=== PATIENT | male | born 1945 | race Hispanic/Latino ===

== ENCOUNTER 2024-07-10 03:25 | Emergency (ER) | payer OTHER, SELFPAY ==
[2024-07-10] VITALS (16 sets, daily range): BP systolic 111–136; BP diastolic 65–86; PULSE 113; O2SAT 98; BMI 28.8
--- NOTE | 2024-07-10 05:14 | ED.GENMED ---
History of Present Illness
<Kj Vargas, DO - Last Filed: 07/10/24 06:45>
General
Chief Complaint: Fall
Source: patient and ambulance crew
Time Seen by Provider: 07/10/24 03:59
Nursing documentation reviewed up to this point in time: agreed with
History of Present Illness
History of Present Illness:
Pleasant 78-year-old male presents to the emergency department from [facility]. Tonight patient lost his balance and fell hit the front of his head. Patient is on heparin. Patient denies loss of consciousness. Patient does have a history of a
subdural hematoma with bur hole.
Course
<Kj Vargas, DO - Last Filed: 07/10/24 06:45>
Orders/Labs/Results
Orders:
Orders
07/10/24 04:[address] [CT Head W/o Iv Contrast] Urgent
Comment:
Reason For Exam: Fall
07/10/24 05:48
Ambulate Patient-Treatment ONCE
07/10/24 06:38
PT Consult [Pt Eval And Treat] Urgent
Activity Level: Out of Bed-Early Mobility
07/10/24 06:59
Complete Blood Count/With Diff Urgent
07/10/24 07:27
Levetiracetam [Keppra] 750 mg PO NOW STA
07/10/24 09:11
Levetiracetam [Keppra] 750 mg PO NOW STA
07/10/24 09:12
Lisinopril [Zestril] 5 mg PO NOW STA
07/10/24 09:32
Basic Metabolic Panel Urgent
07/10/24 09:40
Urinalysis Reflex To Culture Urgent
Date Specimen was Collected: 07/10/24
Time Specimen was Collected: 09:39
Urine Microscopic Reflex Cult Urgent
Urine Culture Urgent
GHAZAL Source: U
Specimen Description:
Date Specimen was Collected: 07/10/24
Time Specimen was Collected: 09:39
07/10/24 09:58
0.9% Sodium Chloride 500 ml [Nss] 500 ml IV BOLUS
07/10/24 10:18
CT Head W/o Iv Contrast Urgent
Comment:
Reason For Exam: f/u SDH, recent jennifer hole
Abnormal Lab Results
07/10/24 07/10/24 07/10/24
06:59 09:32 09:40
RBC 3.39 L 10^6/uL
(4.70-6.10)
Hgb 11.2 L g/dL
(13.0-18.0)
Hct 33.8 L %
(39.0-52.0)
MCV 99.7 H fL
(80.0-94.0)
MCH 33.0 H pg
(27.0-31.0)
Abs Immat Gran (auto) 0.3 H 10^3/uL
(0-0.05)
Absolute Neuts (auto) 8.0 H 10^3/uL
(1.4-6.5)
Absolute Monos (auto) 0.8 H 10^3/uL
(0.1-0.6)
Immature Gran % 2.7 H %
(0-0.5)
Lymphocytes % 11.5 L %
(20.5-51.1)
Potassium 5.2 H mmol/L
(3.5-5.1)
BUN 28 H mg/dl
(9-20)
Creatinine 1.5 H mg/dL
(0.7-1.3)
Glucose 162 H mg/dl
(70-99)
Urine Ketones 2+ A
(Negative)
Ur Occult Blood Reflex 4+ A
(Negative)
Urine RBC 3-6 A /HPF
(0-2)
Urine Bacteria (Reflex) Many A
(Negative)
Urine Albumin (Reflex) 3+ A
(Neg - Trace)
07/10/24 06:59
07/10/24 09:32
Vital Signs
Initial and Last Documented VS:
Initial Vital Signs
BP
124/78
07/10/24 03:27
Last Documented Vital Signs
Temp Pulse Resp BP Pulse Ox
36.7 C 99 23 114/75 95
07/10/24 11:34 07/10/24 12:45 07/10/24 12:45 07/10/24 12:00 07/10/24 12:45
<Robert Kennedy, DO - Last Filed: 07/10/24 12:45>
Orders/Labs/Results
Orders:
Orders
07/10/24 04:[address] [CT Head W/o Iv Contrast] Urgent
Comment:
Reason For Exam: Fall
07/10/24 05:48
Ambulate Patient-Treatment ONCE
07/10/24 06:38
PT Consult [Pt Eval And Treat] Urgent
Activity Level: Out of Bed-Early Mobility
07/10/24 06:59
Complete Blood Count/With Diff Urgent
07/10/24 07:27
Levetiracetam [Keppra] 750 mg PO NOW STA
07/10/24 09:11
Levetiracetam [Keppra] 750 mg PO NOW STA
07/10/24 09:12
Lisinopril [Zestril] 5 mg PO NOW STA
07/10/24 09:32
Basic Metabolic Panel Urgent
07/10/24 09:40
Urinalysis Reflex To Culture Urgent
Date Specimen was Collected: 07/10/24
Time Specimen was Collected: 09:39
Urine Microscopic Reflex Cult Urgent
Urine Culture Urgent
GHAZAL Source: U
Specimen Description:
Date Specimen was Collected: 07/10/24
Time Specimen was Collected: 09:39
07/10/24 09:58
0.9% Sodium Chloride 500 ml [Nss] 500 ml IV BOLUS
07/10/24 10:18
CT Head W/o Iv Contrast Urgent
Comment:
Reason For Exam: f/u SDH, recent jennifer hole
Abnormal Lab Results
07/10/24 07/10/24 07/10/24
06:59 09:32 09:40
RBC 3.39 L 10^6/uL
(4.70-6.10)
Hgb 11.2 L g/dL
(13.0-18.0)
Hct 33.8 L %
(39.0-52.0)
MCV 99.7 H fL
(80.0-94.0)
MCH 33.0 H pg
(27.0-31.0)
Abs Immat Gran (auto) 0.3 H 10^3/uL
(0-0.05)
Absolute Neuts (auto) 8.0 H 10^3/uL
(1.4-6.5)
Absolute Monos (auto) 0.8 H 10^3/uL
(0.1-0.6)
Immature Gran % 2.7 H %
(0-0.5)
Lymphocytes % 11.5 L %
(20.5-51.1)
Potassium 5.2 H mmol/L
(3.5-5.1)
BUN 28 H mg/dl
(9-20)
Creatinine 1.5 H mg/dL
(0.7-1.3)
Glucose 162 H mg/dl
(70-99)
Urine Ketones 2+ A
(Negative)
Ur Occult Blood Reflex 4+ A
(Negative)
Urine RBC 3-6 A /HPF
(0-2)
Urine Bacteria (Reflex) Many A
(Negative)
Urine Albumin (Reflex) 3+ A
(Neg - Trace)
07/10/24 06:59
07/10/24 09:32
Vital Signs
Initial and Last Documented VS:
Initial Vital Signs
BP
124/78
07/10/24 03:27
Last Documented Vital Signs
Temp Pulse Resp BP Pulse Ox
36.7 C 99 23 114/75 95
07/10/24 11:34 07/10/24 12:45 07/10/24 12:45 07/10/24 12:00 07/10/24 12:45
<Jessica Pires PA-C - Last Filed: 07/13/24 09:17>
Orders/Labs/Results
Orders:
Orders
07/10/24 04:[address] [CT Head W/o Iv Contrast] Urgent
Comment:
Reason For Exam: Fall
07/10/24 05:48
Ambulate Patient-Treatment ONCE
07/10/24 06:38
PT Consult [Pt Eval And Treat] Urgent
Activity Level: Out of Bed-Early Mobility
07/10/24 06:59
Complete Blood Count/With Diff Urgent
07/10/24 07:27
Levetiracetam [Keppra] 750 mg PO NOW STA
07/10/24 09:11
Levetiracetam [Keppra] 750 mg PO NOW STA
07/10/24 09:12
Lisinopril [Zestril] 5 mg PO NOW STA
07/10/24 09:32
Basic Metabolic Panel Urgent
07/10/24 09:40
Urinalysis Reflex To Culture Urgent
Date Specimen was Collected: 07/10/24
Time Specimen was Collected: 09:39
Urine Microscopic Reflex Cult Urgent
Urine Culture Urgent
GHAZAL Source: U
Specimen Description:
Date Specimen was Collected: 07/10/24
Time Specimen was Collected: 09:39
07/10/24 09:58
0.9% Sodium Chloride 500 ml [Nss] 500 ml IV BOLUS
07/10/24 10:18
CT Head W/o Iv Contrast Urgent
Comment:
Reason For Exam: f/u SDH, recent jennifer hole
Abnormal Lab Results
07/10/24 07/10/24 07/10/24
06:59 09:32 09:40
RBC 3.39 L 10^6/uL
(4.70-6.10)
Hgb 11.2 L g/dL
(13.0-18.0)
Hct 33.8 L %
(39.0-52.0)
MCV 99.7 H fL
(80.0-94.0)
MCH 33.0 H pg
(27.0-31.0)
Abs Immat Gran (auto) 0.3 H 10^3/uL
(0-0.05)
Absolute Neuts (auto) 8.0 H 10^3/uL
(1.4-6.5)
Absolute Monos (auto) 0.8 H 10^3/uL
(0.1-0.6)
Immature Gran % 2.7 H %
(0-0.5)
Lymphocytes % 11.5 L %
(20.5-51.1)
Potassium 5.2 H mmol/L
(3.5-5.1)
BUN 28 H mg/dl
(9-20)
Creatinine 1.5 H mg/dL
(0.7-1.3)
Glucose 162 H mg/dl
(70-99)
Urine Ketones 2+ A
(Negative)
Ur Occult Blood Reflex 4+ A
(Negative)
Urine RBC 3-6 A /HPF
(0-2)
Urine Bacteria (Reflex) Many A
(Negative)
Urine Albumin (Reflex) 3+ A
(Neg - Trace)
07/10/24 06:59
07/10/24 09:32
Vital Signs
Initial and Last Documented VS:
Initial Vital Signs
BP
124/78
07/10/24 03:27
Last Documented Vital Signs
Temp Pulse Resp BP Pulse Ox
36.7 C 99 23 114/75 95
07/10/24 11:34 07/10/24 12:45 07/10/24 12:45 07/10/24 12:00 07/10/24 12:45
<Robert Kennedy DO - Last Filed: 07/10/24 12:45>
Update Note
Update Note:
The [facility] radiology report noted the subdural however the report today from the [place] radiologist's indicates that this is an acute subdural. Records indicate that he did have a subdural which was nontraumatic but no old prior CT imaging
available. Will repeat CT now ([address] He did poorly with PT but is already placed at [facility]. Repeat CT imaging shows no worsening and may be related to prior injury. No clear indication to keep in the hospital. Blood
work was obtained�white count normal, hemoglobin slightly low at 11.2, creatinine 1.5 (no old to compare) and we did give IV fluids. No clear sign of infection based on urinalysis.
<Jessica Pires PA-C - Last Filed: 07/13/24 09:17>
Update Note
Update Note:
The [facility] radiology report noted the subdural however the report today from the [place] radiologist's indicates that this is an acute subdural. Records indicate that he did have a subdural which was nontraumatic but no old prior CT imaging
available. Will repeat CT now ([address] He did poorly with PT but is already placed at [facility]. Repeat CT imaging shows no worsening and may be related to prior injury. No clear indication to keep in the hospital. Blood
work was obtained�white count normal, hemoglobin slightly low at 11.2, creatinine 1.5 (no old to compare) and we did give IV fluids. No clear sign of infection based on urinalysis.
07/13/2024 0915 AM
[facility] was faxed this urine culture showing 30,000 colonies of E. coli which is pansensitive. Patient was here for a fall and had a subdural
Fax number was [phone]
ED Attending Note
<Kj Vargas, DO - Last Filed: 07/10/24 06:45>
-
Portions of this chart may have been created with voice recognition software.� Occasional wrong word or��sound alike� substitutions may have occurred due to the inherent limitations of voice recognition software.
Discharge Plan
Departure
Patient Disposition: Home (Routine Discharge)
Date of Disposition: 07/10/24
Time of Disposition: 10:16
Patient with high blood pressure during this ER visit?: Yes
Condition: Good
Discharge Problem:
Fall, Subacute subdural hematoma
Instructions: Head Injury in Adults (DC)
Prescriptions:
No Action
Glucagon Emergency Kit 1 mg Kit
1 mg IM [id number] PRN (Reason: symptomatic hypoglycemia that does not respond PO)
insulin glargine 100 unit/mL Solution
30 unit SC HS
acetaminophen 650 mg Tablet
650 mg PO Q6H PRN (Reason: mild pain/fever)
magnesium hydroxide [Milk of Magnesia] 400 mg/5 mL Suspension
30 ml PO DAILY PRN (Reason: if no BM in 3 days)
bisacodyl 10 mg Suppository
10 mg NV DAILY PRN (Reason: constipation)
levetiracetam [Keppra] 750 mg Tablet
750 mg PO Q12H
lisinopril 5 mg Tablet
5 mg PO DAILY
insulin lispro 100 unit/mL Cartridge
1 sliding scale dose SC ACHS
Rx Instructions:
150-200=2 units
201-250=4 units
251-300=6 units
301-350=8 units
351-400=10 units
Incruse Ellipta 62.5 mcg/actuation Blister With Device
1 inh INHALATION DAILY
daptomycin in 0.9 % sod chlor 700 mg/100 mL Piggyback
750 mg IV HS
Referrals:
UNKNOWN - PT DOES,NOT KNOW [Family Provider] -
Activity Restrictions/Additional Instructions:
It was a pleasure meeting you and taking part in your care. We hope for your continued healing and wellness.
Please read discharge instructions in their entirety. However, they are for general education and may not describe your exact diagnosis at discharge. Information on your ER visit and medical conditions were discussed with you along with appropriate
follow up information...
If indicated, please take your medications as instructed and indicated on discharge paperwork.
Please schedule a follow up appointment as directed. Call to schedule an appointment
Please return to the emergency department with ANY change in, persisting, or worsening of symptoms. If any of your symptoms do not improve, or persist, or become more severe within 6-12 hours, please return to the emergency department for further
care.
Please return to the emergency department if you develop a headache, neck pain/stiffness, fever greater than 100.4F, chest pain, shortness of breath, persistent nausea, vomiting, slurred speech, difficulty walking, numbness/tingling, weakness, signs
of infection or any other symptoms that are worrisome to you.
If you have any questions or concerns please do not hesitate to call the Hospital at or E-mail me directly at [email or web address]
We did 2 CAT scans as the initial 1 showed questionable subdural hematoma. The repeat CAT scan is stable. Basic blood work was also obtained. We did give some IV fluids for some mild renal insufficiency. Return here if worse or other concerns.
Interventions
Interventions:
*Risk Screen - Suicide Last Done: 07/10/24 03:28
*General Assessment Last Done: 07/10/24 03:28
*Neglect/Abuse Screening Last Done: 07/10/24 03:28
ED- Fall Risk Assessment Last Done: 07/10/24 03:59
*ED COVID-19 Vaccine History Last Done: 07/10/24 03:58
*Nursing Disposition Last Done: 07/10/24 13:07
ED-Musculoskeletal Assessment Last Done: 07/10/24 03:59
ED- Neurological Assessment Last Done: 07/10/24 03:59
ED-Skin Assessment Last Done: 07/10/24 03:59
Discharge Date and Time
Discharge Date/Time: 07/10/24 13:09
Print Language: GUATEMALAN
--- NOTE | 2024-07-10 07:37 | EDRN ---
this RN received the pt from previous gaming host nurse Eliecer KELLEY, the pt is resting in stretcher in the lowest position, side rails up x2, call warren within reach, HOB elevated, no s/s of distress, the pt is chadian speaking, bus and sys integration senior manager used to
communicate with the pt, the pt is tachycardic, afebrile, the pt has a RUE Midline, per med list the pt is on Daptomycin for 'Sepsis/MRSA', it is unknown where the location of MRSA is, medication reconciliation performed and completed by this RN,
this RN notified Dr. Kennedy of daily medications that the pt takes, awaiting for physical therapy to see the pt, will continue to monitor the pt closely
[2024-07-10 07:39] LABS: % Basophils 0.6 % (0-2); % Eosinophils 3.2 % (0-6); % Immature Granulocytes 2.7 % (0-0.5); % Lymphocytes 11.5 % (20.5-51.1); % Monocytes 7.4 % (1.7-9.3); % Neutrophils 74.6 % (42.2-75.2); Absolute Basophils 0.1 10^3/uL (0-0.2); Absolute Eosinophils 0.3 10^3/uL (0-0.7); Absolute Immature Granulocytes 0.3 10^3/uL (0-0.05); Absolute Lymphocytes 1.2 10^3/uL (1.2-3.4); Absolute Monocytes 0.8 10^3/uL (0.1-0.6); Hematocrit 33.8 % (39.0-52.0); Hemoglobin 11.2 g/dL (13.0-18.0); Mean Corp Hgb Conc. 33.1 g/dL (33.0-37.0); Mean Corpuscular Volume 99.7 fL (80.0-94.0); Mean Platelet Volume 10.3 fL (7.4-10.4); Nucleated Red Blood Cells % 0 % (-); Platelet Count 243 10^3/uL (130-400); Red Blood Cell Count 3.39 10^6/uL (4.70-6.10); Red Cell Dist. Width 12.2 % (11.5-14.5); White Blood Cell Count 10.7 10^3/uL (4.8-10.8)
--- NOTE | 2024-07-10 08:46 | EDRN ---
physical therapy currently at the pts bedside
[2024-07-10] MEDS: ZESTRIL 5 MG PO (09:28)
[2024-07-10] MEDS: KEPPRA 750 MG PO (09:28)
[2024-07-10 09:56] LABS: Blood Urea Nitrogen 28 mg/dl (9-20); Calcium 8.9 mg/dl (8.4-10.2); Carbon Dioxide 25 mmol/L (22-30); Chloride 103 mmol/L (98-107); Estimated Creatinine Clearance 38 ml/min; Glucose 162 mg/dl (70-99); Potassium 5.2 mmol/L (3.5-5.1); Sodium 135 mmol/L (135-145); eGFR 47.95
[2024-07-10] MEDS: NSS 500 IV (10:04)
[2024-07-10 10:05] LABS: Urine Albumin 3+ (Neg - Trace); Urine Bilirubin Negative (Negative); Urine Character Clear (Clear); Urine Color Yellow; Urine Glucose Negative (Negative); Urine Ketone 2+ (Negative); Urine Leukocyte Negative (Negative); Urine Nitrite Negative (Negative); Urine Occult Blood 4+ (Negative); Urine Urobilinogen Negative (Neg - 1+)
[2024-07-10 10:23] LABS: Urine Granular Cast >15 /LPF (0); Urine Hyaline Cast 0-2 /LPF (0-2)
[2024-07-10 10:25] LABS: Urine Amorphous Seen
[2024-07-10 10:26] LABS: Urine Bacteria Many (Negative); Urine White Cell 0-2 /HPF (0-5)
--- NOTE | 2024-07-10 13:04 | EDRN ---
this RN called [facility] to give verbal report at [phone] and spoke to the receiving nurse Marianela and gave report and also notified them that morning meds Keppra and Lisinopril were administered
== END 2024-07-10 13:09 | disposition home or self-care (01) ==
LOC: EMR 03:25
PROVIDERS: Emergency Medicine; EMERGENCY PHYSICIAN Student in an Organized Health Care Education/Training Program
DX: S06.5XAA Traumatic subdural hemorrhage with loss of consciousness status unknown, initial encounter (principal); W01.0XXA Fall on same level from slipping, tripping and stumbling without subsequent striking against object, initial encounter
CPT/HCPCS: 99285; 96360; 70450; 80048; 81003; 81015; 85025; 87071; 87086; 87186

== ENCOUNTER 2024-07-27 19:42 | Inpatient (IN) | payer MEDICARE, OTHER, SELFPAY ==
[2024-07-27] VITALS (17 sets, daily range): BP systolic 80–133; BP diastolic 47–101
[2024-07-27 13:34] LABS: % Basophils 0.8 % (0-2); % Eosinophils 3.1 % (0-6); % Immature Granulocytes 2.4 % (0-0.5); % Lymphocytes 13.9 % (20.5-51.1); % Monocytes 6.2 % (1.7-9.3); % Neutrophils 73.6 % (42.2-75.2); Absolute Basophils 0.1 10^3/uL (0-0.2); Absolute Eosinophils 0.3 10^3/uL (0-0.7); Absolute Immature Granulocytes 0.3 10^3/uL (0-0.05); Absolute Lymphocytes 1.4 10^3/uL (1.2-3.4); Absolute Monocytes 0.6 10^3/uL (0.1-0.6); Absolute Neutrophils 7.5 10^3/uL (1.4-6.5); Hematocrit 37.8 % (39.0-52.0); Hemoglobin 12.5 g/dL (13.0-18.0); Mean Corp Hgb Conc. 33.1 g/dL (33.0-37.0); Mean Corpuscular Hgb 32.5 pg (27.0-31.0); Mean Corpuscular Volume 98.2 fL (80.0-94.0); Mean Platelet Volume 9.6 fL (7.4-10.4); Nucleated Red Blood Cells % 0 % (-); Platelet Count 379 10^3/uL (130-400); Red Blood Cell Count 3.85 10^6/uL (4.70-6.10); Red Cell Dist. Width 12.8 % (11.5-14.5); White Blood Cell Count 10.2 10^3/uL (4.8-10.8)
[2024-07-27 13:49] LABS: ALT (SGPT) 27 U/L (0-50); AST (SGOT) 39 U/L (17-59); Albumin 3.3 g/dl (3.5-5.0); Alkaline Phosphatase 146 U/L (38-126); Blood Urea Nitrogen 34 mg/dl (9-20); Calcium 9.7 mg/dl (8.4-10.2); Carbon Dioxide 26 mmol/L (22-30); Chloride 99 mmol/L (98-107); Glucose 150 mg/dl (70-99); Potassium 5.1 mmol/L (3.5-5.1); Sodium 136 mmol/L (135-145); Total Protein 7.5 g/dl (6.3-8.2); eGFR 46.19
--- NOTE | 2024-07-27 14:08 | ED.GENMED ---
History of Present Illness
General
Chief Complaint: Hallucinations
Time Seen by Provider: 07/27/24 13:36
History of Present Illness
History of Present Illness:
84-year-old male with history of COPD, diabetes, history of subdural hematoma, seizure disorder presenting to the emergency department for concern of infection. Patient arrives from [place] where he was noted to have elevated heart rate and
slightly low blood pressure. He was sent for evaluation of 'sepsis'. Patient speaks Greek. Attempted to use instructor trainer canine service, however patient does not have his teeth in place so instructor trainer canine service having difficulty understanding, tried to translators.
Patient reports that he was recently admitted to hospital in [place] for a 'infection in his heart '. Per medics, patient had allegedly been hallucinating about babies in the room. Patient himself denies any acute medical complaints. He
denies chest pain, difficulty breathing, abdominal pain. No additional history obtained at this time
Phy Exam
Physical Exam
Physical Exam:
General: Well-appearing, no clinical signs of dehydration, nontoxic and in no acute distress
HEENT: protecting airway
Neck: appears supple
CV: Tachycardic, regular rhythm, no evidence of cyanosis
Resp: No accessory muscle use, no increased work of breathing, lungs clear to auscultation bilaterally. Active dry cough
Abd: Soft and non-distended, no tenderness to palpation
Extremities: No deformities, no swelling
Neuro: alert, no focal neurologic deficit. Disoriented to place and time
: deferred
Rectal: deferred
Psych: Normal affect
Skin: Intact
Course
Orders/Labs/Results
Orders:
Orders
07/27/24 13:26
CBC/With Diff [Complete Blood Count/With Diff] Urgent
CMP [Comprehensive Metabolic Panel] Urgent
07/27/24 13:58
COVID-19 Antigen Urgent
Source: Nasal Swab
Influenza A+B Rapid Molecular Urgent
GHAZAL Source: Nasal Swab
Specimen Description:
CR Chest - 2 Views Urgent
Comment:
Reason For Exam: cough
07/27/24 13:59
CT Head W/o Iv Contrast Urgent
Comment:
Reason For Exam: ams
07/27/24 15:11
0.9% Sodium Chloride 1000 ml [Nss] 1,000 ml IV BOLUS
07/27/24 15:28
Urinalysis Reflex To Culture Urgent
Date Specimen was Collected: 07/27/24
Time Specimen was Collected: 15:24
Urine Microscopic Reflex Cult Urgent
Urine Culture Urgent
GHAZAL Source: U
Specimen Description:
Date Specimen was Collected: 07/27/24
Time Specimen was Collected: 15:24
07/27/24 16:45
Lactic Acid Q4H
Comment: CANCEL 2nd LACTIC ACID IF 1st LACTIC ACID IS LESS THAN 2
Blood Culture Q30M
GHAZAL Source: Blood/Venous
Specimen Description:
07/27/24 17:15
Blood Culture Q30M
GHAZAL Source: Blood/Venous
Specimen Description:
07/27/24 20:45
Lactic Acid Q4H
Comment: CANCEL 2nd LACTIC ACID IF 1st LACTIC ACID IS LESS THAN 2
Abnormal Lab Results
07/27/24 07/27/24
13:26 15:28
RBC 3.85 L 10^6/uL
(4.70-6.10)
Hgb 12.5 L g/dL
(13.0-18.0)
Hct 37.8 L %
(39.0-52.0)
MCV 98.2 H fL
(80.0-94.0)
MCH 32.5 H pg
(27.0-31.0)
Abs Immat Gran (auto) 0.3 H 10^3/uL
(0-0.05)
Absolute Neuts (auto) 7.5 H 10^3/uL
(1.4-6.5)
Immature Gran % 2.4 H %
(0-0.5)
Lymphocytes % 13.9 L %
(20.5-51.1)
BUN 34 H mg/dl
(9-20)
Creatinine 1.5 H mg/dL
(0.7-1.3)
Glucose 150 H mg/dl
(70-99)
Alkaline Phosphatase 146 H U/L
(38-126)
Albumin 3.3 L g/dl
(3.5-5.0)
Urine Ketones 1+ A
(Negative)
Ur Occult Blood Reflex 2+ A
(Negative)
Urine Bilirubin 1+ A
(Negative)
Leukocyte Esterase Rfl 1+ A
(Negative)
Urine Bacteria (Reflex) Moderate A
(Negative)
Urine Albumin (Reflex) 2+ A
(Neg - Trace)
07/27/24 13:26
07/27/24 13:26
Vital Signs
Initial and Last Documented VS:
Initial Vital Signs
Temp Pulse Resp BP Pulse Ox
97.7 F 106 18 103/51 100
07/27/24 13:05 07/27/24 13:05 07/27/24 13:05 07/27/24 13:05 07/27/24 13:05
Last Documented Vital Signs
Temp Pulse Resp BP Pulse Ox
97.7 F 105 20 107/57 96
07/27/24 13:05 07/27/24 15:45 07/27/24 15:00 07/27/24 15:27 07/27/24 15:45
MDM/Problems Addressed
MDM/Problems Addressed:
84-year-old male with history of COPD, history of subdural hematoma, diabetes, seizures presenting for concern of underlying infection. Vital signs on arrival are significant for tachycardia.
On exam, patient is resting comfortably, no acute distress. He does have an active dry cough, otherwise no acute medical complaints. Patient is a very limited historian, Greek-speaking, does not have his dentures, so difficulty understanding by
field crops harvest machine operator. He does not have any present acute complaints. He does present with some mild tachycardia and an active cough, however afebrile. Blood pressure stable. At this time lower suspicion for septic process. Will obtain screening
laboratory analysis, chest x-ray imaging, viral swabs. Prior history of UTIs in the past as well, will send urinalysis. Also prior history of intracranial hemorrhage. Will obtain CT brain imaging.
16:40 - Patient without leukocytosis, however blood pressure is low, starting IV fluids. Heart rate remains elevated. Patient is meeting SIRS criteria now with the low blood pressure. Chest x-ray shows concern for pneumonia, which is suspected
source of infection with patient's active cough. Will start antibiotics. Given that patient is in a [facility], will treat as a hospital-acquired. Plan for admission.
*Critical Care Note
Total Time (30-74mins, 75-104mins- exclusive of procedures): Not Applicable
ED Attending Note
-
Portions of this chart may have been created with voice recognition software.� Occasional wrong word or��sound alike� substitutions may have occurred due to the inherent limitations of voice recognition software.
Discharge Plan
Departure
Prescriptions:
No Action
Glucagon Emergency Kit 1 mg Kit
1 mg IM [id number] PRN (Reason: symptomatic hypoglycemia that does not respond PO)
insulin glargine 100 unit/mL Solution
30 unit SC HS
acetaminophen 650 mg Tablet
650 mg PO Q6H PRN (Reason: mild pain/fever)
magnesium hydroxide [Milk of Magnesia] 400 mg/5 mL Suspension
30 ml PO DAILY PRN (Reason: if no BM in 3 days)
bisacodyl 10 mg Suppository
10 mg HI DAILY PRN (Reason: constipation)
levetiracetam [Keppra] 750 mg Tablet
750 mg PO Q12H
lisinopril 5 mg Tablet
5 mg PO DAILY
insulin lispro 100 unit/mL Cartridge
1 sliding scale dose SC ACHS
Rx Instructions:
150-200=2 units
201-250=4 units
251-300=6 units
301-350=8 units
351-400=10 units
Incruse Ellipta 62.5 mcg/actuation Blister With Device
1 inh INHALATION DAILY
daptomycin in 0.9 % sod chlor 700 mg/100 mL Piggyback
750 mg IV HS
Referrals:
Luis Carlos Albarran MD [Family Provider] -
Interventions
Interventions:
*Risk Screen - Suicide Last Done: 07/27/24 13:05
*General Assessment Last Done: 07/27/24 13:05
*Neglect/Abuse Screening Last Done: 07/27/24 13:05
*ED- Fall Risk Assessment Last Done: 07/27/24 13:05
*ED COVID-19 Vaccine History Last Done: 07/27/24 14:01
ED-Suicide Risk Assessment Last Done: 07/27/24 14:05
ED- Neurological Assessment Last Done: 07/27/24 14:01
ED-Psychological Assessment Last Done: 07/27/24 14:01
Discharge Date and Time
Print Language: ALGERIAN
[2024-07-27 14:25] LABS: COVID-19 Antigen Negative (Negative)
[2024-07-27] MEDS: NSS 1000 IV (15:26)
[2024-07-27 15:46] LABS: Urine Albumin 2+ (Neg - Trace); Urine Bilirubin 1+ (Negative); Urine Character Clear (Clear); Urine Color Yellow; Urine Glucose Negative (Negative); Urine Ketone 1+ (Negative); Urine Leukocyte 1+ (Negative); Urine Nitrite Negative (Negative); Urine Occult Blood 2+ (Negative); Urine Specific Gravity 1.025 (<1.030); Urine Urobilinogen 1+ (Neg - 1+)
[2024-07-27 16:14] LABS: Urine Bacteria Moderate (Negative); Urine Hyaline Cast >15 /LPF (0-2); Urine Red Blood Cell 0-2 /HPF (0-2); Urine White Cell 0-2 /HPF (0-5)
--- NOTE | 2024-07-27 17:36 | HPS.HSE ---
Family Physician
-
Family Physician: Luis Carlos Albarran
Chief Complaint
-
tachycardia and hypotension
History of Present Illness
Patient is a 84-year-old male with past medical history of COPD, DM, seizure disorder and Hx subdural hematoma who presented to [facility] ED for evaluation of tachycardia and hypotension at [facility]. Patient primarily
Mauritanian speaking, brake liner had a hard time understanding r/t patient not having his teeth in. Per ED documentation appears patient has had recent history of hallucinations seeing babies in the room. Patient denied any acute medical complaints. He
did state he was recently hospitalized in [place] for a 'infection in his heart.'
Medical History
Past Medical History
Past Medical History: Reports Other (obtained from facility documentation)
Additional Past Medical History:
COPD
DM
seizure disorder
Hx subdural hematoma
Past Surgical History: Reports Other (unable to obtain )
Social History
Unable to obtain full social history at this time due to: Language Barrier
Family History
Family History: Unable to Obtain
Allergies / Home Medications
Allergies reflects when Allergies were last updated in [facility].
Home Medications with original date entered in [facility]
Allergy/Medication List:
Allergies
Allergy/AdvReac Type Severity Reaction Status Date / Time
No Known Allergies Allergy Verified 07/27/24 13:04
Home Medications
acetaminophen 650 mg tablet 650 mg PO Q6H PRN mild pain/fever 07/10/24
bisacodyl 10 mg rectal suppository 10 mg CO DAILY PRN constipation 07/10/24
glucagon 1 mg injection kit 1 mg IM [id number] PRN symptomatic hypoglycemia that does not respond PO 07/10/24
insulin glargine 100 unit/mL subcutaneous solution 15 unit SC HS 07/10/24
insulin lispro 100 unit/mL subcutaneous cartridge 1 sliding scale dose SC ACHS 07/10/24
levetiracetam 750 mg tablet (Keppra) 750 mg PO Q12H 07/10/24
lisinopril 5 mg tablet 5 mg PO DAILY 07/10/24
magnesium hydroxide 400 mg/5 mL oral suspension (Milk of Magnesia) 30 ml PO DAILY PRN if no BM in 3 days 07/10/24
umeclidinium 62.5 mcg/actuation blister powder for inhalation (Incruse Ellipta) 1 inh inhalation DAILY 07/10/24
Review of Systems
-
Unable to obtain full review of systems at this time due to: Language Barrier
Physical Exam
Vital Signs
Vital Signs
Temp Pulse Resp BP Pulse Ox
97.7 F 104 19 88/62 96
07/27/24 13:05 07/27/24 17:15 07/27/24 17:15 07/27/24 17:00 07/27/24 16:45
Physical Exam
General: Well Developed, Well Nourished and No Apparent Distress
HEENT: NormoCephalic, Moist mucous membranes, Atraumatic, [place] Conjunctivae, Nose Appears Normal and Ears Appear Normal
Respiratory: Clear and Non Labored Respirations
Cardiac: S1/S2, Regular Rhythm and Tachycardia; No Murmur, Rub or Gallop
GI: Soft, Non Tender, Non Distended and Normal Bowel Sounds; No Organomegaly
Rectal: Deferred by Provider
Genito-urinary: Deferred by me
Musculoskeletal: No Clubbing, No Cyanosis and No Edema
Skin: IV/Catheter Site; No Rash
Neuro: Awake and Nonfocal/grossly intact
Laboratory Results
-
07/27/24 13:26
07/27/24 13:
Laboratory Results
Total Bilirubin 1.0 mg/dl (0.2-1.3) 07/27/24 13:26
AST 39 U/L (17-59) 07/27/24 13:26
ALT 27 U/L (0-50) 07/27/24 13:26
Alkaline Phosphatase 146 U/L (38-126) H 07/27/24 13:26
Data Reviewed
-
Diagnostic Radiology: Report Reviewed by me (CXR: 1. Moderate diffuse ground-glass opacity and increased interstitial markings throughout the left lung. Mild subpleural interstitial and airspace disease in the peripheral right upper lobe. The
appearance is most suggestive of an INFLAMMATORY PNEUMONITIS. Infectious pneumonia is an alternative)
CT Scan: Report Reviewed by me (Head: 1. Thin crescent of extra-axial high attenuation overlying the anterior and lateral convexities of the left frontal lobe and the lateral convexity of the left parietal lobe which is unchanged in appearance
from 07/10/2024. Diagnostic possibilities are (1) dural thickening/scarring deep to a l)
Lab Data: Labs Reviewed by me (BUN 34, Creat 1.5, Alk Phos 146)
Impression/Plan
-
IMPRESSION/PLAN:
#sepsis 06/21 suspected pneumonia
Covid: negative
Influenza: negative
Procal: pending
Lactic: pending
Blood Cx: pending
CXR: 1. Moderate diffuse ground-glass opacity and increased interstitial markings throughout the left lung. Mild subpleural interstitial and airspace disease in the peripheral right upper lobe. The appearance is most suggestive
of an INFLAMMATORY PNEUMONITIS. Infectious pneumonia is an alternative diagnostic possibility.
2. 2.7 cm peripheral airspace opacity in the right midlung. Diagnostic possibilities are (1) pneumonia, (2) inflammatory pneumonitis, or (3) lung cancer.
3. Mild to moderate cardiomegaly.
4. Mildly decreased bilateral lung volumes.
- Admit to telemetry
- IV antibiotics
#hypotension
- IVF bolus now
- LR 100cc/hr
- maintain MAP >65
- hold lisinopril
#Acute kidney injury
BUN 34, Creat 1.5
- IVF
- monitor BMP
#DM
- AccuCheck AC & HS
- SSI
- continue home insulin regiment if able to tolerate PO, if unable to tolerate PO meza to SSI with half dose Lantus
#seizure disorder
- continue Keppra
#Hx subdural hematoma
Head CT: 1. Thin crescent of extra-axial high attenuation overlying the anterior and lateral convexities of the left frontal lobe and the lateral convexity of the left parietal lobe which is unchanged in appearance from 07/10/2024.
Diagnostic possibilities are (1) dural thickening/scarring deep to a left parietal craniotomy or (2) a stable small subacute subdural hemorrhage.
2. Mild diffuse cerebral and cerebellar volume loss.
3. Moderate white matter leukoaraiosis in the frontal and parietal lobes.
4. 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
#COPD
- continue Incruse Ellipta
Code status: full code
DVT prophylaxis: heparin sq
--- NOTE | 2024-07-27 17:58 | W.PN.UPDATE ---
Update Note
Progress Note Update
I saw and examined the patient.
The DISC SANDER or PA's note was reviewed and I agree with the note.
Comment:
84-year-old with past medical history of COPD, diabetes, history of subdural hematoma, seizure disorder not presents from [facility] after noted to have elevated heart rate and slightly lower blood pressure.� Patient was alerted as 'sepsis' and
therefore prompted ED evaluation.� Advised to the hospital, patient was elucidating as per EMS.� Poor historian as patient does not have teeth in place, therefore as patient speaks Taiwanese, difficult understanding.� Of note, recent infection in
[place] and he stated as infection of his heart.� Otherwise denies fever, chills, chest pain, shortness of breath.� Noted to be tachycardic with heart rate of 104, respiratory rate 19, blood pressure 88/62.,� Saturating 96% on room air.� Labs
remarkable for creatinine of 1.5 which is approximately baseline, alk phos 146, UA equivocal.� Recent UTI with E. coli on July 10, 2024.� Flu negative.� COVID-negative.� Chest x-ray with possible groundglass opacity and increased interstitial
markings to left lung, airspace disease in the peripheral right upper lobe, possibly inflammatory pneumonitis versus bacterial pneumonia.� Also has 2.7 cm peripheral airspace opacity in the right midlung.
Plan�follow-up urine, blood cultures.� Follow-up procalcitonin.� Continue empiric antibiotics with vancomycin, Zosyn for now.� MRSA swab PCR.� Follow-up lactate.� Continue IV fluids 100 cc/h. LR bolus now. �Maintain MAP greater than 65.� Hold
antihypertensives.� Continue insulin if able to tolerate p.o., otherwise insulin sliding scale and half home dose Lantus.� Continue Keppra. �Echo as had recent heart issues. CT Chest for better eval.
[2024-07-27 18:14] LABS: Lactic Acid 1.5 mmol/L (0.7-2.0)
[2024-07-27 18:34] LABS: Procalcitonin 0.06 ng/ml (0.0-0.25)
[2024-07-27] MEDS: VANCOCIN 540 MG IV (18:35)
[2024-07-27] MEDS: MAXIPIME 2000 MG IV (18:35)
[2024-07-27] MEDS: LR 1000 IV ×2 (18:35→21:38)
[2024-07-27] MEDS: KEPPRA 750 MG PO (21:38)
--- NOTE | 2024-07-27 21:52 | PHA.VAN.IN ---
Assessment
- Assessment
Renal Function: Appears similar to baseline (07/10/24 BASELINE SCR: 1.5)
Concomitant Antimicrobials: ZOSYN
- Previous Dosing Experience
Previous Regimen: NONE
Plan
- Plan
Initial / Loading Dose: 2GM
Maintenance Regimen: DOSING BY RANDOM LEVEL
Monitoring: RANDOM VANCOMYCIN LEVEL 07/28/24 AM
Pharmacokinetics Vancomycin I
- -
Patient Age: 84
Patient Sex: Male
Vancomycin Day #: 1
Indication: Pulmonary/Respiratory (SEPSIS)
Requesting Provider: AMI
Height / Weight:
Height 5 ft 6 in
Actual Weight 72.4 kg
Pertinent Past Medical History: DM
- Vital Signs / Lab Results
Temp Pulse Resp BP Pulse Ox
97.7 F 94 23 104/47 94
07/27/24 13:05 07/27/24 21:00 07/27/24 21:00 07/27/24 21:00 07/27/24 19:30
Lab Results - Hematology
07/27/24
13:26
WBC 10.2
Lab Results - Chemistry
07/27/24
13:26
BUN 34 H
Creatinine 1.5 H
Albumin 3.3 L
07/27/24 07/27/24
17:54 20:45
Lactic Acid 1.5 Cancelled
Lab Results - Urine
07/27/24
15:28
Urine Nitrite (Reflex) Negative
Leukocyte Esterase Rfl 1+ A
Urine WBC (Reflex) 0-2
Ur Squamous Epith Cells 6-10
Urine Bacteria (Reflex) Moderate A
Microbiology Results
07/27/24 13:58 Influenza Types A & B (AIED) - Final
Nasal Swab Negative for Influenza A & B, NAAT
Negative results must be combined with clinical observations
and patient history.
Nucleic Acid Amplification test (NAAT)performed on the
[employer] platform.
[2024-07-27 22:08] LABS: Glucose - Point of Care 102 mg/dl (70-99)
[2024-07-27] MEDS: LANTUS 0.05 UNITS SC (22:58)
[2024-07-27] MEDS: LANTUS SC (22:59)
[2024-07-27] MEDS: ZOSYN 50 IV (22:59)
[2024-07-28] VITALS (8 sets, daily range): BP systolic 106–141; BP diastolic 58–76; BMI 25.8
[2024-07-28] MEDS: HEPARIN 5000 UNITS SC ×2 (00:40→07:58)
[2024-07-28] MEDS: NSS (PRESERVATIVE FREE) 0.125 ML IV (03:16)
[2024-07-28] MEDS: ATIVAN 0.25 MG IV (03:17)
[2024-07-28 03:20] LABS: Glucose - Point of Care 89 mg/dl (70-99)
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
[2024-07-28] MEDS: ZOSYN 50 IV ×4 (05:33→21:21)
[2024-07-28 06:34] LABS: Hemoglobin 11.4 g/dL (13.0-18.0); Mean Corp Hgb Conc. 32.6 g/dL (33.0-37.0); Mean Corpuscular Hgb 32.8 pg (27.0-31.0); Mean Corpuscular Volume 100.6 fL (80.0-94.0); Mean Platelet Volume 9.9 fL (7.4-10.4); Platelet Count 349 10^3/uL (130-400); Red Blood Cell Count 3.48 10^6/uL (4.70-6.10); Red Cell Dist. Width 12.9 % (11.5-14.5); White Blood Cell Count 11.4 10^3/uL (4.8-10.8)
[2024-07-28 06:53] LABS: Vancomycin Random 15.7 ug/ml
[2024-07-28 07:21] LABS: ALT (SGPT) 22 U/L (0-50); AST (SGOT) 34 U/L (17-59); Albumin 2.9 g/dl (3.5-5.0); Alkaline Phosphatase 126 U/L (38-126); Blood Urea Nitrogen 28 mg/dl (9-20); Calcium 9.1 mg/dl (8.4-10.2); Carbon Dioxide 25 mmol/L (22-30); Chloride 104 mmol/L (98-107); Estimated Creatinine Clearance 40 ml/min; Glucose 108 mg/dl (70-99); Potassium 4.9 mmol/L (3.5-5.1); Sodium 138 mmol/L (135-145); Total Bilirubin 0.9 mg/dl (0.2-1.3); Total Protein 6.7 g/dl (6.3-8.2); eGFR 54.85
[2024-07-28] MEDS: NOVOLOG FLEXPEN-LOW RESISTANCE SC ×3 (07:57→17:48)
[2024-07-28] MEDS: KEPPRA 750 MG PO (07:58)
[2024-07-28 10:51] LABS: Glycohemoglobin (HgbA1c) 7.3 % (4.0-5.6)
[2024-07-28 11:43] LABS: Glucose - Point of Care 100 mg/dl (70-99)
[2024-07-28] MEDS: SPIRIVA RESPIMAT 2.5 MCG 2 PUFF INH (11:44)
[2024-07-28] MEDS: LR 1000 IV (11:46)
--- NOTE | 2024-07-28 14:27 | W.PN.HOSP.TC ---
Today's Communication/Plan
-
abx
urine eos and IgE
f/u cultures
pulm consulted
ekg for qtc, haldol rec rather than benzos
Neuro consulted, holding hsq
Assessment / Plan
Assessment / Plan
Physical Exam
General: Well Developed, Well Nourished and No Apparent Distress; Agitated
HEENT: NormoCephalic, Moist mucous membranes, Atraumatic, [place] Conjunctivae, Nose Appears Normal and Ears Appear Normal
Respiratory: Clear and Non Labored Respirations
Cardiac: S1/S2, Regular Rhythm and Tachycardia; No Murmur, Rub or Gallop
GI: Soft, Non Tender, Non Distended and Normal Bowel Sounds; No Organomegaly
Rectal: Deferred by Provider
Genito-urinary: Deferred by me
Musculoskeletal: No Clubbing, No Cyanosis and No Edema
Skin: IV/Catheter Site; No Rash
Neuro: Awake and Nonfocal/grossly intact
#Sepsis 2/2 suspected pneumonia v pnumonitis
COVID and Flu negative
Blood Cx: pending
-MRSA negative
-Cont zosyn
-F/u IgE and urine eosinophils
-pulm consulted
�Hold antihypertensives
# #Stable small subacute subdural hemorrhage versus dural thickening
� Neurology consulted
� Hold DVT prophylaxis
#Acute metabolic encephalopathy
- Secondary to probable infection
-Monitor with resuscitation
� Avoid benzodiazepines if possible
#Acute kidney injury
� Prerenal versus septic ATN
- IVF
- monitor BMP
#DM
- AccuCheck AC & HS
- SSI
- Not able to tolerate diet,
#seizure disorder
- continue Keppra
#Hx subdural hematoma
Head CT: 1. Thin crescent of extra-axial high attenuation overlying the anterior and lateral convexities of the left frontal lobe and the lateral convexity of the left parietal lobe which is unchanged in appearance from 07/10/2024.
Diagnostic possibilities are (1) dural thickening/scarring deep to a left parietal craniotomy or (2) a stable small subacute subdural hemorrhage.
2. Mild diffuse cerebral and cerebellar volume loss.
3. Moderate white matter leukoaraiosis in the frontal and parietal lobes.
4. 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
-neuro consulted
#COPD
- continue Incruse Ellipta
Code status: full code
DVT prophylaxis: scd
Total time spent on today's encounter was 50 minutes which included time spent in counseling the patient/family regarding diagnosis and treatment plan as listed above, goals of care, and symptom management. Case was discussed with nursing staff,
specialists, and care coordinators/case management. All labs and imaging personally reviewed by me. Remainder the time spent in detailed review of previous records, lab data, imaging, and other medical provider documentation.
Anticipated Discharge: > 48 hours
Subjective/Interval History
-
Date of Service: July 28, 2024
given ativan overnight for agitation
Objective Data
-
Labs:
Laboratory Results
07/28/24 07/28/24
05:30 05:31
WBC 11.4 H
Hgb 11.4 L
Hct 35.0 L
Plt Count 349
Sodium 138
Potassium 4.9
Chloride 104
Carbon Dioxide 25
BUN 28 H
Creatinine 1.3
Glucose 108 H
Calcium 9.1
Total Bilirubin 0.9
AST 34
ALT 22
Alkaline Phosphatase 126
Vital Signs:
Vital Signs
Temp Pulse Resp BP Pulse Ox
98.0 F 81 21 141/64 95
07/28/24 07:27 07/28/24 13:30 07/28/24 13:30 07/28/24 12:00 07/28/24 07:27
I&O
07/27/24 07/28/24 07/29/24
06:59 06:59 06:59
Intake Total 850 / 850
Balance 850 / 850
Review of Systems
-
History Source: Patient
All other systems: Not reviewed unless documented
Data Reviewed
-
CT Scan: Report Reviewed by me
Labs: Labs Reviewed by me
[2024-07-28 17:46] LABS: Glucose - Point of Care 97 mg/dl (70-99)
[2024-07-28] MEDS: KEPPRA PO ×2 (19:47→19:50)
[2024-07-28] MEDS: KEPPRA 750 MG IV (20:02)
--- NOTE | 2024-07-28 20:17 | CON.NEURO ---
Neuro Assessment/Plan
Assessment
subdural hematoma
I reviewed the head CT imaging from today and 07/10/24, agree left frontal subdural, up to 3.5 mm in thickness, similar today as 07/10/24
no further imaging required, no rx
Consultation
Order
Date of Consultation: 07/28/24
Requesting Provider: Wes Mace
Reason for Consult: subdural hematoma
Subjective/Objective
Subjective Data
Date of Service: July 28, 2024
From H&P:
Patient is a 84-year-old male with past medical history of COPD, DM, seizure disorder and Hx subdural hematoma who presented to [facility] ED for evaluation of altered mental status, tachycardia and hypotension at [facility]
Home. Patient primarily Palauan speaking, personal injury attorney had a hard time understanding r/t patient not having his teeth in. Per ED documentation appears patient has had recent history of hallucinations seeing babies in the room. Patient denied any acute
medical complaints. He did state he was recently hospitalized in [place] for a 'infection in his heart.'
At times, he is confused, pulling out lines.
the patient had Head CT 'Thin crescent of extra-axial high attenuation overlying the anterior and lateral convexities of the left frontal lobe and the lateral convexity of the left parietal lobe which is unchanged in appearance from 07/10/2024.
Diagnostic possibilities are (1) dural thickening/scarring deep to a left parietal craniotomy or (2) a stable small subacute subdural hemorrhage.'
Objective Data
Vital Signs
Temp Pulse Resp BP Pulse Ox
36.4 C 92 18 122/58 94
07/28/24 17:30 07/28/24 17:30 07/28/24 17:30 07/28/24 17:30 07/28/24 17:30
Lab Results
07/28/24 05:30
07/28/24 05:31
Sodium 138 mmol/L (135-145) 07/28/24 05:31
Potassium 4.9 mmol/L (3.5-5.1) 07/28/24 05:31
BUN 28 mg/dl (9-20) H 07/28/24 05:31
Glucose 108 mg/dl (70-99) H 07/28/24 05:31
Calcium 9.1 mg/dl (8.4-10.2) 07/28/24 05:31
Patient Allergies
No Known Allergies Allergy (Verified 07/27/24 13:04)
Physical Exam
-
Awake and alert
confused
moving all extremity antigravity
Medications
-
Active Medications
Generic Name Dose Route Start Last Admin
Trade Name Freq PRN Reason Stop Dose Admin
Acetaminophen 650 mg 07/27/24 21:06
Acetaminophen 325 Mg Tablet PO 08/24/24 21:05
Q4HPRN PRN
MARIA/mild pain/temp > 100.4 F
Acetaminophen 650 mg 07/27/24 21:06
Acetaminophen 650 Mg Rectal Suppository RECTAL 08/24/24 21:05
Q4HPRN PRN
MARIA/ mild pain/ temp >/= 100.4F
Dextrose 12.5 grams 07/27/24 21:06
Dextrose 50% (0.5 Grams/Ml) 50 Ml Syringe IV 08/24/24 21:05
[id number] PRN
hypoglycemia
Protocol
Glucagon 1 mg 07/27/24 21:06
Glucagon 1 Mg Vial IM 08/24/24 21:05
PRN PRN
hypoglycemia
Protocol
Insulin Glargine 15 units/ 0.15 mls @ 0 mls/hr 07/27/24 22:00 07/27/24 22:59
Device SC 08/24/24 21:59 Not Given
HS SIDNEY
As Directed
Piperacillin Sod/Tazobactam Sod 3.375 gram in 50 mls @ 100 mls/hr 07/28/24 16:00 07/28/24 15:46
Zosyn IV 50 mls
Q6H SIDNEY Administration
Insulin Aspart 0 units 07/28/24 07:30 07/28/24 17:48
Insulin Aspart Low Resistance 300 Units/3 Ml Pen.Injctr SC 08/25/24 07:29 Not Given
AC SIDNEY
Protocol
Levetiracetam 750 mg 07/27/24 21:00 07/28/24 19:50
Levetiracetam 500 Mg Regular Release Tablet PO 08/24/24 20:59 Not Given
Q12 SIDNEY
Sodium Chloride 0 flush 07/27/24 22:00
Sodium Chloride 0.9% (Flush) Syringe IV 08/24/24 21:59
PER PROTOCOL SIDNEY
Tiotropium [place] 2 puff 07/28/24 08:00 07/28/24 11:44
Tiotropium (Spiriva Respimat) 2.5 Mcg Inhaler INH 08/25/24 07:59 2 puff
R DAILY SIDNEY Administration
Home Medications
�Medication �Instructions �Recorded
bisacodyl 10 mg rectal suppository 10 mg AR DAILYPRN PRN if no bm 07/10/24
aftr mom
insulin glargine 100 unit/mL 15 unit SC HS 07/10/24
subcutaneous solution
insulin lispro 100 unit/mL 1 sliding scale dose SC BID 07/10/24
subcutaneous cartridge
levetiracetam 750 mg tablet 750 mg PO Q12H 07/10/24
(Keppra)
lisinopril 5 mg tablet 5 mg PO DAILY 07/10/24
magnesium hydroxide 400 mg/5 mL 30 ml PO HSPRN PRN if no BM in 3 07/10/24
oral suspension (Milk of Magnesia) days
umeclidinium 62.5 mcg/actuation 1 inh inhalation R DAILY 07/10/24
blister powder for inhalation
(Incruse Ellipta)
acetaminophen 325 mg tablet 650 mg PO Q6HPRN PRN mild pain 07/28/24
(Tylenol)
mirtazapine 15 mg tablet (Remeron) 7.5 mg PO DAILY 07/28/24
[2024-07-28 22:45] LABS: Glucose - Point of Care 81 mg/dl (70-99)
[2024-07-28] MEDS: LANTUS SC (22:51)
[2024-07-29 03:55] VITALS: BP 118/63
[2024-07-29] MEDS: ZOSYN 50 IV ×4 (05:08→21:36)
[2024-07-29 07:30] VITALS: BP 118/85
--- NOTE | 2024-07-29 07:58 | CON.PUL ---
Consultation
Consultation Request
Date/Time Consultation Requested: 07/29/2024-7:30 AM
Date/Time Consultation Performed: 07/29/2024-8 AM
Requesting Provider: Hospitalist
Performing Provider: Dr. Uribe
Reason for Consultation: Shortness of breath/interstitial lung disease
Medical History
-
Chief Complaint: Shortness of breath
History of Present Illness:
84-year-old male patient with a history of COPD, diabetes, seizure disorder and history of subdural hematoma presented with tachycardia and hypotension from a [facility] found to have an abnormal x-ray and pulmonary was consulted for shortness of
breath and suspected interstitial lung disease 07/29/2024. Patient is primarily Chinese-speaking and is garbled and his speech and even using a Chinese-speaking product safety coordinator had a hard time translating and thus history was difficult to obtain from
him. He is in no respiratory distress. He was asking for 'agua'.
Past Medical History
Past Medical History: None (COPD. Diabetes. Seizure disorder. History of subdural hematoma. Recent hospitalization-[place] 'infection in his heart')
Social History
Tobacco: Other (Unknown)
Alcohol: None
Drug: None
Living: Custodial
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
Environmental Exposures: Unknown asbestos exposure
Allergies / Home Medications
Allergies
Allergy/AdvReac Type Severity Reaction Status Date / Time
No Known Allergies Allergy Verified 07/27/24 13:04
Home Medications
�Medication �Instructions �Recorded �Confirmed �Last Taken �Type
bisacodyl 10 mg rectal suppository [address] DAILYPRN PRN if no bm 07/10/24 07/28/24 Unknown History
aftr mom
insulin glargine 100 unit/mL 15 unit SC HS 07/10/24 07/28/24 Unknown History
subcutaneous solution
insulin lispro 100 unit/mL 1 sliding scale dose SC BID 07/10/24 07/28/24 Unknown History
subcutaneous cartridge
levetiracetam 750 mg tablet 750 mg PO Q12H 07/10/24 07/28/24 Unknown History
(Keppra)
lisinopril 5 mg tablet 5 mg PO DAILY 07/10/24 07/28/24 Unknown History
magnesium hydroxide 400 mg/5 mL 30 ml PO HSPRN PRN if no BM in 3 07/10/24 07/28/24 Unknown History
oral suspension (Milk of Magnesia) days
umeclidinium 62.5 mcg/actuation 1 inh inhalation R DAILY 07/10/24 07/28/24 Unknown History
blister powder for inhalation
(Incruse Ellipta)
acetaminophen 325 mg tablet 650 mg PO Q6HPRN PRN mild pain 07/28/24 07/28/24 Unknown History
(Tylenol)
mirtazapine 15 mg tablet (Remeron) 7.5 mg PO DAILY 07/28/24 07/28/24 Unknown History
Review of Systems
-
Unable to Obtain full review of systems at this time due to: Other (Per HPI)
Vitals / Labs / Diagnostic Testing
Vital Signs
Temp Pulse Resp BP Pulse Ox
97.9 F 92 18 118/63 95
07/29/24 03:55 07/29/24 03:55 07/29/24 03:55 07/29/24 03:55 07/29/24 03:55
Microbiology
07/27/24 17:53 Blood/Venous Blood Culture - Preliminary
No Growth in 24 hours- Final report to follow
07/27/24 17:54 Blood/Venous Blood Culture - Preliminary
No Growth in 24 hours- Final report to follow
07/27/24 15:28 Urine Urine Culture - Final
No Significant Growth
07/28/24 20:09 Nose Nasal Screen MRSA (PCR) - Final
MRSA not detected - performed by PCR methodology.
07/27/24 13:58 Nasal Swab Influenza Types A & B (AIDE) - Final
Negative for Influenza A & B, NAAT
Negative results must be combined with clinical observations
and patient history.
Nucleic Acid Amplification test (NAAT)performed on the
[employer] platform.
Diagnostic Testing:
Physical Exam
-
Exam:
Well-nourished and well-developed in no apparent distress
HEENT-atraumatic, normocephalic
Neck-supple, no JVD, no bruit
Heart-regular rate and rhythm-no murmurs, rubs or gallops
Chest with crackles at the bases, no wheezes
Back without tenderness
Abdomen-soft, nontender, nondistended, no hepatosplenomegaly
Extremities-no cyanosis, clubbing, edema and good peripheral pulses
Integument-intact, no rashes, lesions or ecchymosis
Neurology-alert and oriented, nonfocal motor and sensory exam
Assessment
-
84-year-old male patient with a history of COPD, diabetes, seizure disorder and history of subdural hematoma presented with tachycardia and hypotension after falling at [facility] found to have an abnormal x-ray and pulmonary was
consulted for shortness of breath and suspected interstitial lung disease 07/29/2024.
Pneumonia-procalcitonin negative
Aspiration risk
Hypotension
GABI
Hyperglycemia
Mild leukocytosis
Mild macrocytic anemia-hemoglobin 11.4
Conditions present prior to admission:
COPD.
Diabetes.
Seizure disorder.
History of subdural hematoma.
Recent hospitalization-[place] 'infection in his heart'
Plan
Chronicity of radiographic abnormalities is unclear with no older radiographs available for comparison-differential includes aspiration, atypical infectious pneumonitis, noninfectious inflammatory pneumonitis/interstitial lung disease and less
likely interstitial pulmonary edema
Supplement oxygen as needed
Aspiration precautions
Speech therapy evaluation if ongoing suspicion of aspiration
Video swallow if needed
Nebulizers if needed-currently not bronchospastic
Incruse inhaler as an outpatient
Check ESR and ERP
Low threshold for trial of steroids
Hold off bronchoscopy/lung biopsy
Echocardiogram summarized below
Check cultures
COVID testing negative
Influenza negative
Blood cultures no growth
Urine culture no growth
Procalcitonin negative
Empiric antibiotics initiated
Monitor leukocytosis
Neurology consultation pending
Keppra continues for underlying seizure disorder
CT head summarized below
Monitor renal function
Nephrology consultation if not improved
Monitor blood sugar
Insulin supplementation as needed
DVT prophylaxis-mechanical for now
Nutrition with aspiration precautions
Physical therapy evaluation
Reviewed with nursing
Diagnostic data:
Chest x-ray 07/27/2024-moderate diffuse groundglass opacifications suggestive of inflammatory pneumonitis, 2.7 cm peripheral airspace disease right midlung and moderate cardiomegaly
CT head 07/27/2024-mild cerebral and cerebellar volume loss, abnormality left unchanged from 07/10/2024 with diagnostic possibilities dural thickening
Scarring deep to left parietal craniotomy or stable small subacute subdural hemorrhage
CT chest 07/27/2024-severe interstitial and airspace disease involving right upper and right middle lobes and nearly the entire left upper and superior segment left lower lobe suggestive of severe inflammatory interstitial pneumonitis or severe
bilateral pneumonia, moderate cardiomegaly
Echocardiogram 07/28/2024-EF 45-50%, mild mitral stenosis, status post aortic valve replacement with mild aortic regurgitation, rhythm atrial fibrillation
Data Reviewed
-
EKG: Report reviewed by me
Radiology: Image personally visualized and interpreted and Report reviewed by me
CT Scan: Image personally visualized and interpreted and Report reviewed by me
Labs: Labs reviewed by me
Old Records: Reviewed
Total Time Spent with Patient (in minutes): 55
[2024-07-29 08:06] LABS: Hemoglobin 11.4 g/dL (13.0-18.0); Mean Corp Hgb Conc. 32.6 g/dL (33.0-37.0); Mean Corpuscular Hgb 32.4 pg (27.0-31.0); Mean Corpuscular Volume 99.4 fL (80.0-94.0); Mean Platelet Volume 9.6 fL (7.4-10.4); Platelet Count 315 10^3/uL (130-400); Red Blood Cell Count 3.52 10^6/uL (4.70-6.10); White Blood Cell Count 9.6 10^3/uL (4.8-10.8)
[2024-07-29] MEDS: SPIRIVA RESPIMAT 2.5 MCG 2 PUFF INH (08:20)
[2024-07-29 09:05] LABS: Glucose - Point of Care 101 mg/dl (70-99)
[2024-07-29 09:13] LABS: ALT (SGPT) 19 U/L (0-50); AST (SGOT) 30 U/L (17-59); Albumin 2.8 g/dl (3.5-5.0); Alkaline Phosphatase 114 U/L (38-126); Blood Urea Nitrogen 20 mg/dl (9-20); Carbon Dioxide 22 mmol/L (22-30); Chloride 104 mmol/L (98-107); Estimated Creatinine Clearance 40 ml/min; Glucose 100 mg/dl (70-99); Potassium 4.6 mmol/L (3.5-5.1); Sodium 138 mmol/L (135-145); Total Bilirubin 1.1 mg/dl (0.2-1.3); Total Protein 6.5 g/dl (6.3-8.2); eGFR 54.85
[2024-07-29] MEDS: KEPPRA 750 MG IV ×2 (09:15→20:20)
[2024-07-29 09:28] LABS: Glucose - Point of Care 93 mg/dl (70-99)
[2024-07-29] MEDS: NOVOLOG FLEXPEN-LOW RESISTANCE SC ×3 (09:29→17:36)
[2024-07-29] MEDS: KEPPRA PO (09:37)
[2024-07-29 11:30] VITALS: BP 99/79
--- NOTE | 2024-07-29 12:04 | CM ---
CM reviewed chart, per liaison at [facility], patient not LTC resident, was for short term rehab with plan to go home, mostly dependent, not ambulating. Phone call to patients son, Haroldo, to completed assessment. Per son, patient was living with
his other son prior to rehab stay, private home, first floor set up. Son reports patient was ambulatory at home, denies any VN services. Patient on wrist restraint. Son agreeable for patient to return to [facility] for SNF, will need PT/OT
orders. Son asking for call from Physician, TT to Hospitalist with request. CM will continue to follow for all discharge planning needs.
Plan; return to [facility] SNF likely, will need PT/OT.
[2024-07-29 12:20] LABS: Glucose - Point of Care 117 mg/dl (70-99)
--- NOTE | 2024-07-29 13:22 | W.PN.HOSP.TC ---
Today's Communication/Plan
-
abx
f/u final cultures
pulm recs- possible intervention with steroids
Assessment / Plan
Assessment / Plan
Physical Exam
General: Well Developed, Well Nourished and No Apparent Distress; Agitated
HEENT: NormoCephalic, Moist mucous membranes, Atraumatic, [place] Conjunctivae, Nose Appears Normal and Ears Appear Normal
Respiratory: Clear and Non Labored Respirations
Cardiac: S1/S2, Regular Rhythm and Tachycardia; No Murmur, Rub or Gallop
GI: Soft, Non Tender, Non Distended and Normal Bowel Sounds; No Organomegaly
Rectal: Deferred by Provider
Genito-urinary: Deferred by me
Musculoskeletal: No Clubbing, No Cyanosis and No Edema
Skin: IV/Catheter Site; No Rash
Neuro: Awake and Nonfocal/grossly intact
#Sepsis 2/2 suspected pneumonia v pneumonitis
� CT chest with severe interstitial and airspace disease throughout both lungs, preferentially involves periphery of the right upper and middle lobes and nearly entire left upper lobe and superior segment of the left lower lobe
COVID and Flu negative
Blood Cx: pending
-MRSA negative
-Cont zosyn
-F/u IgE and urine eosinophils
-pulm consulted
�Hold antihypertensives
� ESR 110
� Low threshold to initiate steroids
# #Stable small subacute subdural hemorrhage versus dural thickening
� Neurology consulted - NTD
#Acute metabolic encephalopathy
- Secondary to probable infection +/- delirium
-improved today
-cont abx
-Monitor with resuscitation
� Avoid benzodiazepines if possible
#Acute kidney injury
� Prerenal versus septic ATN
- IVF
- monitor BMP
-improving
#DM
- AccuCheck AC & HS
- SSI
- Not able to tolerate diet,
#seizure disorder
- continue Keppra
#Hx subdural hematoma
Head CT: 1. Thin crescent of extra-axial high attenuation overlying the anterior and lateral convexities of the left frontal lobe and the lateral convexity of the left parietal lobe which is unchanged in appearance from 07/10/2024.
Diagnostic possibilities are (1) dural thickening/scarring deep to a left parietal craniotomy or (2) a stable small subacute subdural hemorrhage.
2. Mild diffuse cerebral and cerebellar volume loss.
3. Moderate white matter leukoaraiosis in the frontal and parietal lobes.
4. 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
-neuro consulted - ntd
#COPD
- continue Incruse Ellipta
Code status: full code
DVT prophylaxis: scd
Anticipated Discharge: 24 - 48 hours
Subjective/Interval History
-
Date of Service: July 29, 2024
Mental status is greatly improved today, responding appropriately with alert and awake x 1 still.
Objective Data
-
Labs:
Laboratory Results
07/29/24
07:02
WBC 9.6
Hgb 11.4 L
Hct 35.0 L
Plt Count 315
Sodium 138
Potassium 4.6
Chloride 104
Carbon Dioxide 22
BUN 20
Creatinine 1.3
Glucose 100 H
Calcium 9.0
Total Bilirubin 1.1
AST 30
ALT 19
Alkaline Phosphatase 114
Vital Signs:
Vital Signs
Temp Pulse Resp BP Pulse Ox
97.6 F 107 18 99/79 96
07/29/24 11:30 07/29/24 11:30 07/29/24 11:30 07/29/24 11:30 07/29/24 11:30
I&O
07/28/24 07/29/24 07/30/24
06:59 06:59 06:59
Intake Total 850 / 850 0 / 0
Balance 850 / 850 0 / 0
Review of Systems
-
History Source: Patient
All other systems: Not reviewed unless documented
Data Reviewed
-
CT Scan: Report Reviewed by me
Labs: Labs Reviewed by me
--- NOTE | 2024-07-29 13:58 | PTOTSP ---
Dysphagia Evaluation
Acute on chronic dysphagia/aspiration risk factors (i.e., acute PNA; COPD, hx SDH) present. Downgrade to diet below given prolonged mastication due to acute illness and edentulous status. Cannot distinguish baseline cough vs aspiration at bedside.
Video swallow study warranted.
Recommend:
1. IDDSI Level 6 Soft/Bite Sized, Thin Liquids
2. Medications: in puree
3. Supervision; assist as needed
4. Strategies: upright to 90 degrees, small single sips/bites, slow rate, reflux precautions
5. Video swallow study to r/o pharyngeal dysphagia and aspiration contributing to current clinical picture
[2024-07-29 14:31] LABS: Erythrocyte Sed Rate 90 mm/hour (0-20)
[2024-07-29] MEDS: HEPARIN 5000 UNITS SC ×2 (16:21→23:09)
[2024-07-29 16:58] LABS: Glucose - Point of Care 110 mg/dl (70-99)
[2024-07-29 19:50] VITALS: BP 115/54
[2024-07-29 21:23] LABS: Glucose - Point of Care 100 mg/dl (70-99)
[2024-07-29] MEDS: LANTUS SC (21:36)
[2024-07-29 22:50] VITALS: BP 101/58
[2024-07-30] VITALS (8 sets, daily range): BP systolic 93–128; BP diastolic 53–82; PULSE 103; O2SAT 96
[2024-07-30] MEDS: ZOSYN 50 IV ×4 (04:51→22:18)
[2024-07-30 07:24] LABS: Glucose - Point of Care 99 mg/dl (70-99)
[2024-07-30] MEDS: NOVOLOG FLEXPEN-LOW RESISTANCE SC ×3 (07:24→15:50)
[2024-07-30] MEDS: HEPARIN 5000 UNITS SC ×3 (07:25→22:20)
[2024-07-30] MEDS: KEPPRA 750 MG IV ×2 (07:26→20:35)
[2024-07-30 07:52] LABS: Hematocrit 35.4 % (39.0-52.0); Hemoglobin 11.4 g/dL (13.0-18.0); Mean Corp Hgb Conc. 32.2 g/dL (33.0-37.0); Mean Corpuscular Hgb 31.8 pg (27.0-31.0); Mean Corpuscular Volume 98.9 fL (80.0-94.0); Mean Platelet Volume 9.9 fL (7.4-10.4); Platelet Count 308 10^3/uL (130-400); Red Blood Cell Count 3.58 10^6/uL (4.70-6.10); White Blood Cell Count 8.8 10^3/uL (4.8-10.8)
[2024-07-30] MEDS: SPIRIVA RESPIMAT 2.5 MCG 2 PUFF INH (08:16)
--- NOTE | 2024-07-30 08:33 | PN.CDI ---
CDI
- -
CDI:
Physician Documentation Request
Admit Date: 07/27/24 19:42
Dear Doctor Rodri,
Patient admitted for sepsis.
Nursing documentation wound care clinical panel
07/28/24
21:59 07/29/24
10:00
Is this a pressure-related injury? [Present on admission Sacrum] Yes Yes
Pressure injury appearance (Stage 1) [Present on admission Sacrum] Non blanchable
red Non blanchable
red
Pressure injury stage [Present on admission Sacrum] Stage 1 Stage 1
Surrounding Skin - [Present on admission Sacrum] Dry and intact Dry and intact
Treatment provided [Present on admission Sacrum] Silicone border
foam Silicone border
foam
Physician documentation of the type and location of wounds is required for compliant documentation. Based on the above clinical findings and your assessment, please provide the following in your progress note:
1. Location of the ulcer/wound, including laterality.
2. Type (etiology) of ulcer/wound:
- Diabetic ulcer
- Arterial (ischemic) ulcer
- Traumatic wound
- Venous stasis ulcer
- Pressure (decubitus) ulcer
- Non-healing surgical wound
- Other
- Unable to determine
3. For a non-pressure ulcer, please indicate the depth/severity:
- Limited to the breakdown of skin
- With fat layer exposed
- With necrosis of muscle
- With necrosis of bone
- Other
- Unable to determine
4. If a pressure ulcer, please also include the stage* of the ulcer:
- Stage 1 - Skin intact, non-blanchable redness
- Stage 2 - Partial thickness loss of dermis, includes intact or open blister
- Stage 3 - Full thickness tissue not including bone, tendon or muscle
- Stage 4 - Full thickness tissue loss, including exposed bone, tendon or muscle
- Unstageable - Full thickness loss in which the base of the ulcer is covered by slough (yellow, barth, tello, green or brown) and/or eschar (barth, brown or black) in the wound bed.
- Unable to determine
Use of terms such as suspected, likely, concern for, or probable (associated with a specific diagnosis that is being evaluated, monitored, or treated as if it exists) are acceptable and can be coded in the inpatient setting, when documented at the
time of discharge.
Thank you,
Nika Moreno RN, BSN
CDI Specialist
Available via [employer] text
Please use your independent medical judgment in providing your response.
*Source: National Pressure Ulcer Advisory Panel (NPUAP)
--- NOTE | 2024-07-30 09:18 | W.PN.PUL.V3 ---
Today's Communication / Plan
-
.
Antibiotics.
Wean FiO2.
Begin steroids
Assessment
-
84-year-old male patient with a history of COPD, diabetes, seizure disorder and history of subdural hematoma presented with tachycardia and hypotension after falling at [facility] found to have an abnormal x-ray and pulmonary was
consulted for shortness of breath and suspected interstitial lung disease 07/29/2024.
Pneumonia-procalcitonin negative
Aspiration risk
Hypotension
GABI
Hyperglycemia
Mild leukocytosis
Mild macrocytic anemia-hemoglobin 11.4
Conditions present prior to admission:
COPD.
Diabetes.
Seizure disorder.
History of subdural hematoma.
Recent hospitalization-[place] 'infection in his heart'
Plan
Chronicity of radiographic abnormalities is unclear with no older radiographs available for comparison-differential includes aspiration, atypical infectious pneumonitis, noninfectious inflammatory pneumonitis/interstitial lung disease and less
likely interstitial pulmonary edema
Supplement oxygen as needed
Aspiration precautions
Speech therapy evaluation if ongoing suspicion of aspiration
Video swallow if needed
Nebulizers if needed-currently not bronchospastic
Incruse inhaler as an outpatient
ESR-90
C-reactive protein 110.1.
Begin steroids
Hold off bronchoscopy/lung biopsy
Echocardiogram summarized below
Check cultures
COVID testing negative
Influenza negative
Blood cultures no growth
Urine culture no growth
Procalcitonin negative
Empiric antibiotics initiated
Monitor leukocytosis
Neurology consultation pending
Keppra continues for underlying seizure disorder
CT head summarized below
Monitor renal function
Nephrology consultation if not improved
Monitor blood sugar
Insulin supplementation as needed
DVT prophylaxis-mechanical for now
Nutrition with aspiration precautions
Physical therapy evaluation
Reviewed with nursing As well as primary team
Diagnostic data:
Chest x-ray 07/27/2024-moderate diffuse groundglass opacifications suggestive of inflammatory pneumonitis, 2.7 cm peripheral airspace disease right midlung and moderate cardiomegaly
CT head 07/27/2024-mild cerebral and cerebellar volume loss, abnormality left unchanged from 07/10/2024 with diagnostic possibilities dural thickening
Scarring deep to left parietal craniotomy or stable small subacute subdural hemorrhage
CT chest 07/27/2024-severe interstitial and airspace disease involving right upper and right middle lobes and nearly the entire left upper and superior segment left lower lobe suggestive of severe inflammatory interstitial pneumonitis or severe
bilateral pneumonia, moderate cardiomegaly
Echocardiogram 07/28/2024-EF 45-50%, mild mitral stenosis, status post aortic valve replacement with mild aortic regurgitation, rhythm atrial fibrillation
Subjective Data
-
Date of Service:
Date of Service: July 30, 2024
Chief Complaint: Pulmonary Follow Up and Dyspnea Follow Up
Subjective:
No respiratory distress, no pain or shortness of breath at rest
Review of Systems
General: Other (. HPI)
Objective Data
Data Reviewed
Vital Signs / I&O:
Vital Signs
Temp Pulse Resp BP Pulse Ox
97.3 F 90 18 128/62 97
07/30/24 07:20 07/30/24 07:20 07/30/24 07:20 07/30/24 07:20 07/30/24 07:20
Intake and Output
07/29/24 07/30/24 07/31/24
06:59 06:59 06:59
Intake Total 0 / 0 120 / 120
Balance 0 / 0 120 / 120
SaO2: 97
Physical Exam
General: Respiratory Distress (n) and Comfortable
HEENT: Normocephalic, Anicteric and Moist Mucous Membranes
Cardiovascular: Regular Rhythm
Respiratory: Wheeze (n), Crackles ( few basilar), Rhonchi (n), Non-Labored Respirations and Accessory Resp Muscle Use (n)
GI: Soft, Non Distended and Non Tender
Neurology: Awake, Alert and No Motor Deficits
Skin: Warm, Good Color, Cyanosis (n) and Jaundice (n)
Labs/Micro/Reports
Lab Data
07/30/24 06:55
Microbiology
07/27/24 17:54 Blood/Venous Blood Culture - Preliminary
No Growth in 48 hours- Final report to follow
07/27/24 17:53 Blood/Venous Blood Culture - Preliminary
No Growth in 48 hours- Final report to follow
07/27/24 15:28 Urine Urine Culture - Final
No Significant Growth
07/28/24 20:09 Nose Nasal Screen MRSA (PCR) - Final
MRSA not detected - performed by PCR methodology.
07/27/24 13:58 Nasal Swab Influenza Types A & B (AIDE) - Final
Negative for Influenza A & B, NAAT
Negative results must be combined with clinical observations
and patient history.
Nucleic Acid Amplification test (NAAT)performed on the
[employer] platform.
[2024-07-30 09:27] LABS: ALT (SGPT) 15 U/L (0-50); AST (SGOT) 26 U/L (17-59); Albumin 2.5 g/dl (3.5-5.0); Alkaline Phosphatase 94 U/L (38-126); Blood Urea Nitrogen 20 mg/dl (9-20); Carbon Dioxide 24 mmol/L (22-30); Chloride 105 mmol/L (98-107); Estimated Creatinine Clearance 34 ml/min; Glucose 116 mg/dl (70-99); Potassium 4.4 mmol/L (3.5-5.1); Sodium 138 mmol/L (135-145); Total Bilirubin 0.9 mg/dl (0.2-1.3); eGFR 46.19
[2024-07-30 11:53] LABS: Glucose - Point of Care 139 mg/dl (70-99)
[2024-07-30 11:53] LABS: Calcium 8.9 mg/dl (8.4-10.2)
--- NOTE | 2024-07-30 13:41 | W.PN.HOSP.TC ---
Today's Communication/Plan
-
start steroids
cont abx
monitor glucose levels
Assessment / Plan
Assessment / Plan
Physical Exam
General: Well Developed, Well Nourished and No Apparent Distress; Agitated
HEENT: NormoCephalic, Moist mucous membranes, Atraumatic, [place] Conjunctivae, Nose Appears Normal and Ears Appear Normal
Respiratory: Clear and Non Labored Respirations
Cardiac: S1/S2, Regular Rhythm and Tachycardia; No Murmur, Rub or Gallop
GI: Soft, Non Tender, Non Distended and Normal Bowel Sounds; No Organomegaly
Rectal: Deferred by Provider
Genito-urinary: Deferred by me
Musculoskeletal: No Clubbing, No Cyanosis and No Edema
Skin: IV/Catheter Site; No Rash
Neuro: Awake and Nonfocal/grossly intact
#Sepsis 2/2 suspected pneumonia v pneumonitis
� CT chest with severe interstitial and airspace disease throughout both lungs, preferentially involves periphery of the right upper and middle lobes and nearly entire left upper lobe and superior segment of the left lower lobe
COVID and Flu negative
Blood Cx: pending
-MRSA negative
-Cont zosyn
-ESR-90
-C-reactive protein 110.1.
-pulm consulted
�Hold antihypertensives
� ESR 110
� Low threshold to initiate steroids
-Begin steroids
# #Stable small subacute subdural hemorrhage versus dural thickening
� Neurology consulted - NTD
#Acute metabolic encephalopathy
- Secondary to probable infection +/- delirium
-improved today
-cont abx
-Monitor with resuscitation
� Avoid benzodiazepines if possible
#Acute kidney injury
� Prerenal versus septic ATN
- IVF
- monitor BMP
-improving
#DM
- AccuCheck AC & HS
- SSI
- Not able to tolerate diet,
#seizure disorder
- continue Keppra
#Hx subdural hematoma
Head CT: 1. Thin crescent of extra-axial high attenuation overlying the anterior and lateral convexities of the left frontal lobe and the lateral convexity of the left parietal lobe which is unchanged in appearance from 07/10/2024.
Diagnostic possibilities are (1) dural thickening/scarring deep to a left parietal craniotomy or (2) a stable small subacute subdural hemorrhage.
2. Mild diffuse cerebral and cerebellar volume loss.
3. Moderate white matter leukoaraiosis in the frontal and parietal lobes.
4. 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
-neuro consulted - ntd
#COPD
- continue Incruse Ellipta
Code status: full code
DVT prophylaxis: hsq
Total time spent on today's encounter was 50 minutes which included time spent in counseling the patient/family regarding diagnosis and treatment plan as listed above, goals of care, and symptom management. Case was discussed with nursing staff,
specialists, and care coordinators/case management. All labs and imaging personally reviewed by me. Remainder the time spent in detailed review of previous records, lab data, imaging, and other medical provider documentation.
Anticipated Discharge: 24 - 48 hours
Subjective/Interval History
-
Date of Service: July 30, 2024
still coughing
Objective Data
-
Labs:
Laboratory Results
07/30/24 07/30/24
06:55 08:51
WBC 8.8
Hgb 11.4 L
Hct 35.4 L
Plt Count 308
Sodium Cancelled 138
Potassium Cancelled 4.4
Chloride Cancelled 105
Carbon Dioxide Cancelled 24
BUN Cancelled 20
Creatinine Cancelled 1.5 H
Glucose Cancelled 116 H
Calcium Cancelled 8.9
Total Bilirubin Cancelled 0.9
AST Cancelled 26
ALT Cancelled 15
Alkaline Phosphatase Cancelled 94
Vital Signs:
Vital Signs
Temp Pulse Resp BP Pulse Ox
98.1 F 109 18 93/60 98
07/30/24 11:15 07/30/24 11:15 07/30/24 11:15 07/30/24 11:15 07/30/24 11:15
I&O
07/29/24 07/30/24 07/31/24
06:59 06:59 06:59
Intake Total 0 / 0 120 / 120
Balance 0 / 0 120 / 120
Review of Systems
-
History Source: Patient
All other systems: Not reviewed unless documented
Data Reviewed
-
CT Scan: Report Reviewed by me
Labs: Labs Reviewed by me
[2024-07-30] MEDS: DECADRON 4 MG IV ×2 (14:46→22:19)
[2024-07-30 17:00] LABS: Glucose - Point of Care 104 mg/dl (70-99)
[2024-07-30 22:14] LABS: Glucose - Point of Care 151 mg/dl (70-99)
[2024-07-30] MEDS: LANTUS 0.15 UNITS SC (22:18)
--- NOTE | 2024-07-30 22:36 | VATNOTE ---
unsuccessful IV restart x3 tonight; midline right placed.
[2024-07-31 04:08] VITALS: BP 106/60
[2024-07-31] MEDS: ZOSYN 50 IV ×4 (04:09→21:35)
[2024-07-31] MEDS: DECADRON 4 MG IV ×3 (05:06→21:35)
[2024-07-31 07:49] VITALS: BP 117/59
[2024-07-31 07:54] LABS: Glucose - Point of Care 170 mg/dl (70-99)
[2024-07-31] MEDS: SPIRIVA RESPIMAT 2.5 MCG 2 PUFF INH (08:09)
--- NOTE | 2024-07-31 08:39 | PN.CDI ---
CDI
- -
CDI:
Physician Documentation Request
Admit Date: 07/27/24 19:42
Dear Doctor Rodri,
Patient admitted for sepsis.
07/30 Hospitalist PN: 'Acute kidney injury � Prerenal versus septic ATN'
Laboratory Tests
07/27/24 07/29/24 07/30/24
13:26 07:02 08:51
Creatinine 1.5 H 1.3 1.5 H
The purpose of this query is not to question medical judgement, but to ensure the accuracy of the conditions reported for your patient.
There is either a lack of clinical support for this condition in the current medical record, or there is a lack of recognized standard criteria to support the condition.
Criteria for GABI*
1 Increase in serum creatinine by > or = to 0.3 mg/dL (> or = to 26.5 micromol/L) within 48 hours, OR
2 Increase in serum creatinine to > or = to 1.5 times baseline, which is known or presumed to have occurred within 7 days, OR
3 Urine volume < 0.5 nL/kg/hour for six hours
The request is for one of the following:
- Additional documentation to support the condition. Indicate if this is in lieu of what may be considered standard criteria, and/or support why the standard criteria may not be present for this patient.
- A more appropriate diagnosis, reflecting the patient's condition
- GABI remains a known or suspected condition for this patient and is further supported by (include additional documentation in the medical record)
- GABI has been ruled out and a more appropriate diagnosis for this patient's condition is .
- Other (please specify)
- Unable to determine
Use of terms such as suspected, likely, concern for, or probable (associated with a specific diagnosis that is being evaluated, monitored, or treated as if it exists) are acceptable and can be coded in the inpatient setting, when documented at the
time of discharge.
Thank you,
Nika Moreno RN, BSN
CDI Specialist
Available via [employer]
Please use your independent medical judgment in providing your response.
[2024-07-31 08:47] LABS: Hematocrit 30.2 % (39.0-52.0); Mean Corp Hgb Conc. 33.1 g/dL (33.0-37.0); Mean Corpuscular Hgb 32.3 pg (27.0-31.0); Mean Corpuscular Volume 97.4 fL (80.0-94.0); Mean Platelet Volume 9.9 fL (7.4-10.4); Platelet Count 263 10^3/uL (130-400); Red Cell Dist. Width 12.9 % (11.5-14.5); White Blood Cell Count 3.8 10^3/uL (4.8-10.8)
--- NOTE | 2024-07-31 09:26 | W.PN.PUL.V3 ---
Today's Communication / Plan
-
Finite course of antibiotics
Respiratory status stable on room air-steroid taper and radiographic follow-up as an outpatient-CT chest in 6 to 8 weeks, if able pulmonary [id number] will sign off-please call with questions
Assessment
-
84-year-old male patient with a history of COPD, diabetes, seizure disorder and history of subdural hematoma presented with tachycardia and hypotension after falling at [facility] found to have an abnormal x-ray and pulmonary was
consulted for shortness of breath and suspected interstitial lung disease 07/29/2024.
Pneumonia-procalcitonin negative
Aspiration risk
Hypotension
GABI
Hyperglycemia
Mild leukocytosis
Mild macrocytic anemia-hemoglobin 11.4
Conditions present prior to admission:
COPD.
Diabetes.
Seizure disorder.
History of subdural hematoma.
Recent hospitalization-[place] 'infection in his heart'
Plan
Chronicity of radiographic abnormalities is unclear with no older radiographs available for comparison-differential includes aspiration, atypical infectious pneumonitis, noninfectious inflammatory pneumonitis/interstitial lung disease and less
likely interstitial pulmonary edema
Supplement oxygen as needed-99% on room air
Aspiration precautions
Speech therapy evaluation if ongoing suspicion of aspiration
Video swallow if needed
Nebulizers if needed-currently not bronchospastic
Incruse inhaler as an outpatient
ESR-90
C-reactive protein 110.1.
Daughter steroids initiated-Decadron 4 mg IV every 8 hours
Hold off bronchoscopy/lung biopsy for now
Echocardiogram summarized below
Cultures reviewed
COVID testing negative
Influenza negative
Blood cultures no growth
Urine culture no growth
Procalcitonin negative
Empiric antibiotics initiated-finite course
Monitor leukocytosis
Neurology consultation pending
Keppra continues for underlying seizure disorder
CT head summarized below
Monitor renal function
Nephrology consultation if not improved
Monitor blood sugar
Insulin supplementation as needed
DVT prophylaxis-subcu heparin
Nutrition with aspiration precautions
Physical therapy evaluation
Respiratory status stable on room air-steroid taper and radiographic follow-up as an outpatient-CT chest in 6 to 8 weeks, if able pulmonary [id number] will sign off-please call with questions
Reviewed with nursing As well as primary team
Diagnostic data:
Chest x-ray 07/27/2024-moderate diffuse groundglass opacifications suggestive of inflammatory pneumonitis, 2.7 cm peripheral airspace disease right midlung and moderate cardiomegaly
CT head 07/27/2024-mild cerebral and cerebellar volume loss, abnormality left unchanged from 07/10/2024 with diagnostic possibilities dural thickening
Scarring deep to left parietal craniotomy or stable small subacute subdural hemorrhage
CT chest 07/27/2024-severe interstitial and airspace disease involving right upper and right middle lobes and nearly the entire left upper and superior segment left lower lobe suggestive of severe inflammatory interstitial pneumonitis or severe
bilateral pneumonia, moderate cardiomegaly
Echocardiogram 07/28/2024-EF 45-50%, mild mitral stenosis, status post aortic valve replacement with mild aortic regurgitation, rhythm atrial fibrillation
Subjective Data
-
Date of Service:
Date of Service: July 31, 2024
Chief Complaint: Pulmonary Follow Up and Dyspnea Follow Up
Subjective:
No complaints of worsening shortness of breath, no distress,
Review of Systems
General: Other ( per HPI)
Objective Data
Data Reviewed
Vital Signs / I&O:
Vital Signs
Temp Pulse Resp BP Pulse Ox
98.0 F 84 16 117/59 94
07/31/24 07:49 07/31/24 08:12 07/31/24 08:12 07/31/24 07:49 07/31/24 08:12
Intake and Output
07/30/24 07/31/24 08/01/24
06:59 06:59 06:59
Intake Total 120 / 120 960 / 960
Balance 120 / 120 960 / 960
SaO2: 94
Physical Exam
General: Respiratory Distress (n) and Comfortable
HEENT: Normocephalic, Anicteric and Moist Mucous Membranes
Cardiovascular: Regular Rhythm
Respiratory: Wheeze (n), Crackles ( few basilar), Rhonchi (n), Non-Labored Respirations and Accessory Resp Muscle Use (n)
GI: Soft, Non Distended and Non Tender
Neurology: Awake, Alert and No Motor Deficits
Skin: Warm, Good Color, Cyanosis (n) and Jaundice (n)
Labs/Micro/Reports
Lab Data
07/31/24 08:28
Microbiology
07/27/24 17:54 Blood/Venous Blood Culture - Preliminary
No Growth in 72 hours- Final report to follow
07/27/24 17:53 Blood/Venous Blood Culture - Preliminary
No Growth in 72 hours- Final report to follow
07/27/24 15:28 Urine Urine Culture - Final
No Significant Growth
07/28/24 20:09 Nose Nasal Screen MRSA (PCR) - Final
MRSA not detected - performed by PCR methodology.
[2024-07-31 09:32] LABS: ALT (SGPT) 17 U/L (0-50); AST (SGOT) 25 U/L (17-59); Albumin 2.7 g/dl (3.5-5.0); Alkaline Phosphatase 90 U/L (38-126); Blood Urea Nitrogen 29 mg/dl (9-20); Calcium 8.8 mg/dl (8.4-10.2); Carbon Dioxide 20 mmol/L (22-30); Chloride 103 mmol/L (98-107); Estimated Creatinine Clearance 32 ml/min; Glucose 195 mg/dl (70-99); Potassium 5.1 mmol/L (3.5-5.1); Sodium 136 mmol/L (135-145); Total Bilirubin 0.8 mg/dl (0.2-1.3); Total Protein 6.1 g/dl (6.3-8.2); eGFR 42.75
[2024-07-31] MEDS: NOVOLOG FLEXPEN-LOW RESISTANCE 1 UNITS SC ×2 (10:06→17:22)
[2024-07-31] MEDS: HEPARIN 5000 UNITS SC ×3 (10:07→23:35)
[2024-07-31] MEDS: KEPPRA 750 MG IV ×2 (10:17→20:02)
[2024-07-31 11:06] VITALS: BP 107/64
[2024-07-31 11:26] LABS: Glucose - Point of Care 202 mg/dl (70-99)
--- NOTE | 2024-07-31 12:32 | W.PN.HOSP.TC ---
Today's Communication/Plan
-
Continue with IV steroids
Continue with antibiotics
Monitor for diet tolerance
Assessment / Plan
Assessment / Plan
Physical Exam
General: No Apparent Distress; Agitated
HEENT: NormoCephalic, Moist mucous membranes, Atraumatic, Nose Appears Normal and Ears Appear Normal
Respiratory: Clear and Non Labored Respirations
Cardiac: S1/S2, Regular Rhythm and Tachycardia; No Murmur, Rub or Gallop
GI: Soft, Non Tender, Non Distended and Normal Bowel Sounds; No Organomegaly
Rectal: Deferred by Provider
Genito-urinary: Deferred by me
Musculoskeletal: No Clubbing, No Cyanosis and No Edema
Skin: IV/Catheter Site; No Rash
Neuro: Awake and Nonfocal/grossly intact
#Sepsis 2/2 suspected pneumonia v pneumonitis
� CT chest with severe interstitial and airspace disease throughout both lungs, preferentially involves periphery of the right upper and middle lobes and nearly entire left upper lobe and superior segment of the left lower lobe
COVID and Flu negative
Blood Cx: pending
-MRSA negative
-Cont zosyn-complete finite course. Started on 07/28/24.
-ESR-90
-C-reactive protein 110.1.
-pulm consulted
�Hold antihypertensives
�ESR 110
- Was started on pulm-taper regimen on discharge.
# #Stable small subacute subdural hemorrhage versus dural thickening
� Neurology consulted - NTD
#Acute metabolic encephalopathy
-Secondary to probable infection +/- delirium
-improving slowly
-cont abx
-Monitor with resuscitation
-Avoid benzodiazepines if possible
#Acute kidney injury
� Prerenal versus septic ATN
- IVF
- monitor BMP
#DM
- AccuCheck AC & HS
- SSI
- poc 170
#seizure disorder
- continue Keppra
#COPD
- continue Incruse Ellipta
#Dysphagia
-VSE no aspiration. Recommended continue current IDDS6 diet.
Code status: full code
DVT prophylaxis: hsq
PT/OT
Anticipated Discharge: 24 - 48 hours
Subjective/Interval History
-
Date of Service: July 31, 2024
No overnight events
Objective Data
-
Labs:
Laboratory Results
07/31/24
08:28
WBC 3.8 L
Hgb 10.0 L
Hct 30.2 L
Plt Count 263
Sodium 136
Potassium 5.1
Chloride 103
Carbon Dioxide 20 L
BUN 29 H
Creatinine 1.6 H
Glucose 195 H
Calcium 8.8
Total Bilirubin 0.8
AST 25
ALT 17
Alkaline Phosphatase 90
Vital Signs:
Vital Signs
Temp Pulse Resp BP Pulse Ox
97.1 F 88 18 107/64 96
07/31/24 11:06 07/31/24 11:06 07/31/24 11:06 07/31/24 11:06 07/31/24 11:06
I&O
07/30/24 07/31/24 08/01/24
06:59 06:59 06:59
Intake Total 120 / 120 960 / 960
Balance 120 / 120 960 / 960
Data Reviewed
-
Total Time Spent with Patient (in minutes): 55
[2024-07-31 12:45] LABS: IgE 173 kU/L (<=214)
--- NOTE | 2024-07-31 13:03 | CM ---
CM reviewed chart, reviewed with Hospitalist, patient may be ready for discharge over weekend. Patient will need insurance auth to return to [facility]. Will need ambulance transport when discharged. CM will continue to follow for all discharge
planning needs.
Plan; return to [facility], will need auth.
[facility]
Dr. Albarran: [phone]
[2024-07-31] MEDS: NOVOLOG FLEXPEN-LOW RESISTANCE 2 UNITS SC (13:28)
[2024-07-31 15:11] VITALS: BP 105/56
--- NOTE | 2024-07-31 15:45 | PTOTSP ---
Videofluoroscopic swallow study
Summary: Patient presents with WFL oral/pharyngeal swallowing for consistencies assessed. Solids were not trialed due to patient politely declining due to edentulous status.
Recommend:
1. IDDSI Level 6 Soft/Bite Sized, Thin Liquids
2. Medications: in puree
3. Supervision; assist as needed
4. Strategies: upright to 90 degrees, small single sips/bites, slow rate, reflux precautions
5. No further dysphagia tx warranted at this time. Consider advancement of diet upon return to facility if/when dental appliances available.
[2024-07-31 17:22] LABS: Glucose - Point of Care 173 mg/dl (70-99)
[2024-07-31 20:18] VITALS: BP 111/60
[2024-07-31 21:18] LABS: Glucose - Point of Care 183 mg/dl (70-99)
[2024-07-31] MEDS: LANTUS 0.15 UNITS SC (22:39)
[2024-07-31 23:04] VITALS: BP 109/63
[2024-08-01 02:54] VITALS: BP 120/65
[2024-08-01] MEDS: ZOSYN 50 IV ×4 (05:00→21:27)
[2024-08-01] MEDS: DECADRON 4 MG IV (05:29)
[2024-08-01 07:24] LABS: Glucose - Point of Care 163 mg/dl (70-99)
[2024-08-01 07:26] VITALS: BP 130/66
[2024-08-01] MEDS: NOVOLOG FLEXPEN-LOW RESISTANCE 1 UNITS SC ×2 (08:45→12:36)
[2024-08-01] MEDS: HEPARIN 5000 UNITS SC ×2 (08:51→16:01)
[2024-08-01] MEDS: KEPPRA 750 MG IV ×2 (08:54→21:26)
[2024-08-01] MEDS: FLUSH (NSS) 1 FLUSH IV ×3 (08:54→16:09)
[2024-08-01 09:05] LABS: Hematocrit 28.4 % (39.0-52.0); Mean Corp Hgb Conc. 35.2 g/dL (33.0-37.0); Mean Corpuscular Hgb 33.2 pg (27.0-31.0); Mean Corpuscular Volume 94.4 fL (80.0-94.0); Mean Platelet Volume 10.3 fL (7.4-10.4); Platelet Count 238 10^3/uL (130-400); Red Blood Cell Count 3.01 10^6/uL (4.70-6.10); Red Cell Dist. Width 12.8 % (11.5-14.5); White Blood Cell Count 8.4 10^3/uL (4.8-10.8)
[2024-08-01] MEDS: SPIRIVA RESPIMAT 2.5 MCG 2 PUFF INH (09:18)
[2024-08-01 09:29] LABS: ALT (SGPT) 16 U/L (0-50); AST (SGOT) 28 U/L (17-59); Albumin 2.8 g/dl (3.5-5.0); Alkaline Phosphatase 84 U/L (38-126); Blood Urea Nitrogen 38 mg/dl (9-20); Calcium 8.7 mg/dl (8.4-10.2); Carbon Dioxide 22 mmol/L (22-30); Chloride 101 mmol/L (98-107); Estimated Creatinine Clearance 32 ml/min; Glucose 176 mg/dl (70-99); Sodium 135 mmol/L (135-145); Total Bilirubin 0.8 mg/dl (0.2-1.3); Total Protein 6.3 g/dl (6.3-8.2); eGFR 42.75
[2024-08-01 09:43] LABS: Potassium 4.8 mmol/L (3.5-5.1)
[2024-08-01 10:58] VITALS: BP 113/62
--- NOTE | 2024-08-01 11:36 | W.PN.HOSP.TC ---
Today's Communication/Plan
-
dc to snf
po abx
steroid taper
Assessment / Plan
Assessment / Plan
Physical Exam
General: No Apparent Distress; Agitated
HEENT: NormoCephalic, Moist mucous membranes, Atraumatic, Nose Appears Normal and Ears Appear Normal
Respiratory: Clear and Non Labored Respirations
Cardiac: S1/S2, Regular Rhythm and Tachycardia; No Murmur, Rub or Gallop
GI: Soft, Non Tender, Non Distended and Normal Bowel Sounds; No Organomegaly
Rectal: Deferred by Provider
Genito-urinary: Deferred by me
Musculoskeletal: No Clubbing, No Cyanosis and No Edema
Skin: IV/Catheter Site; No Rash
Neuro: Awake and Nonfocal/grossly intact
#Sepsis 2/2 suspected pneumonia v pneumonitis
� CT chest with severe interstitial and airspace disease throughout both lungs, preferentially involves periphery of the right upper and middle lobes and nearly entire left upper lobe and superior segment of the left lower lobe
COVID and Flu negative
Blood Cx: negative so far
-MRSA negative
-Cont zosyn-complete finite course. Started on 07/28/24.
-ESR-90
-C-reactive protein 110.1.
-pulm consulted
�ESR 110
- Steroids Was started on pulm-taper regimen on discharge.
# #Stable small subacute subdural hemorrhage versus dural thickening
� Neurology consulted - NTD
#Acute metabolic encephalopathy
-Secondary to probable infection +/- delirium
-improving slowly
-cont abx
-Monitor with resuscitation
-Avoid benzodiazepines if possible
#Acute kidney injury
� Prerenal versus septic ATN
- IVF
- monitor BMP
#DM
- AccuCheck AC & HS
- SSI
- poc 170
#seizure disorder
- continue Keppra
#COPD
- continue Incruse Ellipta
#Dysphagia
-VSE no aspiration. Recommended continue current IDDS6 diet.
Code status: full code
DVT prophylaxis: hsq
PT/OT-SNF. CM aware.
More than 30 minutes spent in discharge including
Final examination of the patient
Summarizing hospital stay
Instructions for continuing care to all relevant caregivers
Preparation of discharge records, prescriptions, and referral forms
Total time spent (in minutes): 45
d/w with grandson and multiple family members at bedside in details on 07/31/24
Anticipated Discharge: Today
Subjective/Interval History
-
Date of Service: August 01, 2024
no overnight events
on room air
Objective Data
-
Labs:
Laboratory Results
08/01/24
08:27
WBC 8.4
Hgb 10.0 L
Hct 28.4 L
Plt Count 238
Sodium 135
Potassium 4.8
Chloride 101
Carbon Dioxide 22
BUN 38 H
Creatinine 1.6 H
Glucose 176 H
Calcium 8.7
Total Bilirubin 0.8
AST 28
ALT 16
Alkaline Phosphatase 84
Vital Signs:
Vital Signs
Temp Pulse Resp BP Pulse Ox
97.0 F 65 16 113/62 97
08/01/24 10:58 08/01/24 10:58 08/01/24 10:58 08/01/24 10:58 08/01/24 10:58
I&O
07/31/24 08/01/24 08/02/24
06:59 06:59 06:59
Intake Total 960 / 960 960 / 960
Balance 960 / 960 960 / 960
[2024-08-01 11:37] LABS: Glucose - Point of Care 164 mg/dl (70-99)
--- NOTE | 2024-08-01 12:39 | CM ---
Touched base with [facility] coveringDaniel at [phone] who will submit for SNF auth.
DC dispo [facility] pending auth.
[2024-08-01 15:02] VITALS: BP 109/51
[2024-08-01 16:42] LABS: Glucose - Point of Care 139 mg/dl (70-99)
[2024-08-01] MEDS: NOVOLOG FLEXPEN-LOW RESISTANCE SC (16:44)
[2024-08-01 19:30] VITALS: BP 121/64
[2024-08-01] MEDS: LANTUS 0.15 UNITS SC (21:27)
[2024-08-01 21:44] LABS: Glucose - Point of Care 133 mg/dl (70-99)
[2024-08-01 23:00] VITALS: BP 117/52
[2024-08-02] MEDS: HEPARIN 5000 UNITS SC ×3 (00:21→15:45)
[2024-08-02 03:30] VITALS: BP 123/55
[2024-08-02] MEDS: ZOSYN 50 IV ×4 (03:45→21:24)
[2024-08-02 06:41] LABS: Hemoglobin 10.1 g/dL (13.0-18.0); Mean Corp Hgb Conc. 33.7 g/dL (33.0-37.0); Mean Corpuscular Hgb 32.3 pg (27.0-31.0); Mean Corpuscular Volume 95.8 fL (80.0-94.0); Platelet Count 229 10^3/uL (130-400); Red Blood Cell Count 3.13 10^6/uL (4.70-6.10); White Blood Cell Count 8.6 10^3/uL (4.8-10.8)
[2024-08-02 06:57] LABS: ALT (SGPT) 25 U/L (0-50); AST (SGOT) 55 U/L (17-59); Albumin 2.7 g/dl (3.5-5.0); Alkaline Phosphatase 87 U/L (38-126); Blood Urea Nitrogen 37 mg/dl (9-20); Calcium 8.8 mg/dl (8.4-10.2); Carbon Dioxide 25 mmol/L (22-30); Chloride 103 mmol/L (98-107); Estimated Creatinine Clearance 34 ml/min; Glucose 71 mg/dl (70-99); Potassium 4.1 mmol/L (3.5-5.1); Sodium 137 mmol/L (135-145); Total Bilirubin 0.8 mg/dl (0.2-1.3); eGFR 46.19
[2024-08-02] MEDS: KEPPRA 750 MG IV ×2 (07:27→21:23)
[2024-08-02] MEDS: FLUSH (NSS) 2 FLUSH IV (07:28)
[2024-08-02] MEDS: DELTASONE PO (07:28)
[2024-08-02 07:30] VITALS: BP 119/56
[2024-08-02] MEDS: SPIRIVA RESPIMAT 2.5 MCG 2 PUFF INH (07:41)
[2024-08-02 07:43] LABS: Glucose - Point of Care 83 mg/dl (70-99)
[2024-08-02] MEDS: NOVOLOG FLEXPEN-LOW RESISTANCE SC ×3 (07:46→15:45)
--- NOTE | 2024-08-02 09:11 | CM ---
Addendum entered by Jessica Sousa 08/02/24 14:20:
UPDATE: 1420
CM s/w Daniel/Sandy Luciano-Auth remains outstanding at this time.
Original Note:
YAO recieved message from that pt remains stable for dc.
Message out to Daniel/Sandy [facility] at [phone]- Kcbn remains outstanding at this time.
YAO/DUNCAN will continue to follow to ensure a safe and timely dc.
[2024-08-02 10:57] VITALS: BP 105/60
[2024-08-02 11:52] LABS: Glucose - Point of Care 89 mg/dl (70-99)
--- NOTE | 2024-08-02 12:20 | W.PN.HOSP.TC ---
Today's Communication/Plan
-
Await placement
Encourage p.o. intake
Continue with steroids and antibiotics
Assessment / Plan
Assessment / Plan
Physical Exam
General: No Apparent Distress; calm,
HEENT: NormoCephalic, Moist mucous membranes, Atraumatic, Nose Appears Normal and Ears Appear Normal
Respiratory: Clear and Non Labored Respirations
Cardiac: S1/S2, Regular Rhythm and Tachycardia; No Murmur, Rub or Gallop
GI: Soft, Non Tender, Non Distended and Normal Bowel Sounds; No Organomegaly
Rectal: Deferred by Provider
Genito-urinary: Deferred by me
Musculoskeletal: No Clubbing, No Cyanosis and No Edema
Skin: IV/Catheter Site; No Rash
Neuro: Awake and Nonfocal/grossly intact
#Sepsis 2/2 suspected pneumonia v pneumonitis concerning for pneumonitis versus inflammatory pneumonitis versus ILD
-CT chest with severe interstitial and airspace disease throughout both lungs, preferentially involves periphery of the right upper and middle lobes and nearly entire left upper lobe and superior segment of the left lower lobe
-COVID and Flu negative
-Blood Cx: negative so far
-MRSA negative
-Cont zosyn-complete finite course. Started on 07/28/24.
-ESR-90
-C-reactive protein 110.1.
-pulm consulted
�ESR 110
-IV steroids started per pulmonary. Now transitioned to oral taper.
# #Stable small subacute subdural hemorrhage versus dural thickening
� Neurology consulted - NTD
#Acute metabolic encephalopathy
-Secondary to probable infection +/- delirium
-improving slowly
-cont abx
-Monitor with resuscitation
-Avoid benzodiazepines if possible
#Acute kidney injury
� Prerenal versus septic ATN
- IVF
- monitor BMP
#DM
- AccuCheck AC & HS
- SSI
- poc 83
#seizure disorder
- continue Keppra
#COPD
- continue Incruse Ellipta
#Dysphagia
-VSE no aspiration. Recommended continue current IDDS6 diet.
-Encourage to increase po intake.
Code status: full code
DVT prophylaxis: hsq
PT/OT-SNF. CM aware. Per case management Auth pending. Medically stable since 08/01/2024.
d/w with grandson and multiple family members at bedside in details on 07/31/24
Anticipated Discharge: Today
Subjective/Interval History
-
Date of Service: August 02, 2024
Seen and examined. Appreciated RN LISA assistance for translation
Patient states he is feeling better.
Objective Data
-
Labs:
Laboratory Results
08/02/24
06:16
WBC 8.6
Hgb 10.1 L
Hct 30.0 L
Plt Count 229
Sodium 137
Potassium 4.1
Chloride 103
Carbon Dioxide 25
BUN 37 H
Creatinine 1.5 H
Glucose 71
Calcium 8.8
Total Bilirubin 0.8
AST 55
ALT 25
Alkaline Phosphatase 87
Vital Signs:
Vital Signs
Temp Pulse Resp BP Pulse Ox
98.3 F 91 18 105/60 96
08/02/24 10:57 08/02/24 10:57 08/02/24 10:57 08/02/24 10:57 08/02/24 10:57
I&O
08/01/24 08/02/24 08/03/24
06:59 06:59 06:59
Intake Total 960 / 960 200 / 200
Balance 960 / 960 200 / 200
[2024-08-02 15:06] VITALS: BP 107/57
[2024-08-02 15:40] LABS: Glucose - Point of Care 70 mg/dl (70-99)
[2024-08-02 20:45] LABS: Glucose - Point of Care 77 mg/dl (70-99)
[2024-08-02] MEDS: LANTUS 0.15 UNITS SC (21:23)
[2024-08-02] MEDS: REMERON 7.5 MG PO (21:24)
[2024-08-02 23:09] VITALS: BP 101/67
[2024-08-03] MEDS: HEPARIN 5000 UNITS SC ×4 (01:46→22:18)
[2024-08-03] MEDS: ZOSYN 50 IV (04:01)
[2024-08-03 07:00] VITALS: BP 116/68
[2024-08-03] MEDS: SPIRIVA RESPIMAT 2.5 MCG 2 PUFF INH (08:01)
[2024-08-03] MEDS: KEPPRA 750 MG IV ×2 (08:13→20:13)
[2024-08-03] MEDS: FLUSH (NSS) 1 FLUSH IV (08:13)
[2024-08-03] MEDS: DELTASONE 40 MG PO (08:13)
[2024-08-03 08:35] LABS: Glucose - Point of Care 70 mg/dl (70-99)
[2024-08-03] MEDS: NOVOLOG FLEXPEN-LOW RESISTANCE SC ×2 (08:36→12:00)
--- NOTE | 2024-08-03 11:09 | CM ---
CM reviewed chart, spoke with Daniel, liaison Sandy Altoonadali- per Daniel, authorization remains pending, reference number #[id number]. Left VM for patients son. CM will continue to follow for all discharge planning needs.
Plan; awaiting auth to [facility]
[2024-08-03 11:50] LABS: Glucose - Point of Care 100 mg/dl (70-99)
[2024-08-03 12:22] LABS: Potassium 4.1 mmol/L (3.5-5.1)
--- NOTE | 2024-08-03 14:40 | W.PN.HOSP.TC ---
Today's Communication/Plan
-
pending rehab, CM aware
Assessment / Plan
Assessment / Plan
84yo M with PMHx of COPD, DM, SDH, seizure d/o came from [facility] for evaluation of infection, managed for pneumonitis, possible bacterial source vs ILD, as per pulm tapered on steroids, remained without hypoxia on RA. GABI resolved, patient is
stable for d/c to rehab, pending insurance auth as per CM
A/P:
#Sepsis 2/2 suspected pneumonia v pneumonitis concerning for pneumonitis versus inflammatory pneumonitis versus ILD
CT chest with severe interstitial and airspace disease throughout both lungs, preferentially involves periphery of the right upper and middle lobes and nearly entire left upper lobe and superior segment of the left lower lobe
COVID-19 and Flu PCR negative
bcx NTD
Completed Zosyn as per agreement with pulm
steroids taper started per pulmonary, outpatient f/u in 6-8 weeks
#Stable small subacute subdural hemorrhage versus dural thickening
Neurology consulted: stable findings no intervention
#Acute metabolic encephalopathy
resolved
#CKD stage 3a
Cr 1.3-1.5
#DM type 2 with nephropathy
Insulin SS, accuchekcs and DM diet
#seizure disorder
continue Keppra
seizure precautions
#COPD stable
continue Incruse Ellipta
#Dysphagia
VSE no aspiration. Recommended continue current IDDS6 diet as per FLOORWORKER
#mild anemia
outpatient f/u with PCP
#L axila sebaceous cyst
asymptomatic
#Small hiatal hernia
asymptomatic
DVT ppx hep
FUll code
I have spent at least 38min reviewing chart, test reuslts, communication with consultantants and providing direct patient care
Anticipated Discharge: 24 - 48 hours
Subjective/Interval History
-
Date of Service: August 03, 2024
Objective Data
-
Labs:
Laboratory Results
08/03/24
12:03
Potassium 4.1
Vital Signs:
Vital Signs
Temp Pulse Resp BP Pulse Ox
97.8 F 84 16 116/68 96
08/03/24 07:00 08/03/24 08:04 08/03/24 08:04 08/03/24 07:00 08/03/24 14:15
I&O
08/02/24 08/03/24 08/04/24
06:59 06:59 06:59
Intake Total 200 / 200 870 / 870
Balance 200 / 200 870 / 870
Review of Systems
-
History Source: Patient
All other systems: Reviewed and negative
Physical Exam
-
General: No Apparent Distress
HEENT: Normocephalic
Respiratory: Clear to Auscultation
GI: Soft, Nontender and Nondistended
Neuro: Awake, Alert, Oriented and AO x 3
Psych: Calm
[2024-08-03 15:31] VITALS: BP 117/62
[2024-08-03] MEDS: NOVOLOG FLEXPEN-LOW RESISTANCE 1 UNITS SC (16:56)
[2024-08-03 16:57] LABS: Glucose - Point of Care 170 mg/dl (70-99)
[2024-08-03 20:49] LABS: Glucose - Point of Care 192 mg/dl (70-99)
[2024-08-03] MEDS: LANTUS 0.15 UNITS SC (22:17)
[2024-08-03] MEDS: REMERON 7.5 MG PO (22:17)
[2024-08-03 23:06] VITALS: BP 112/60
--- NOTE | 2024-08-03 23:48 | PTCARENOTE ---
AAO x 4. Patient is primarily kazakh speaking. Speech is garbled. Q 2 hour turns. Incontinence care completed. Stage 1 sacral pressure injury noted. Barrier cream applied. Plan for discharge to [facility], pending insurance authorization per CM.
Modified contact and aspiration precautions maintained throughout the shift. Bed in lowest position. Bed alarm on. All patient needs met. Call warren and personal belongings within reach.
[2024-08-04 07:00] VITALS: BP 131/65
[2024-08-04 07:06] LABS: Glucose - Point of Care 108 mg/dl (70-99)
[2024-08-04] MEDS: SPIRIVA RESPIMAT 2.5 MCG 2 PUFF INH (08:13)
[2024-08-04] MEDS: NOVOLOG FLEXPEN-LOW RESISTANCE SC ×2 (08:18→12:10)
[2024-08-04 08:54] VITALS: BP 138/57
[2024-08-04] MEDS: KEPPRA 750 MG PO (09:37)
[2024-08-04] MEDS: DELTASONE 40 MG PO (09:38)
[2024-08-04] MEDS: HEPARIN 5000 UNITS SC (09:39)
--- NOTE | 2024-08-04 11:20 | CM ---
Addendum entered by Oanh Alexander 08/04/24 12:47:
Referral placed to [facility], will accept for VN services. Will fax script/clinicals to [facility] for Hospital Bed
[facility] VN
Addendum entered by Oanh Alexander 08/04/24 11:59:
CM spoke with patients family bedside (grandson and two daughters), report they want to bring patient home. CM discussed per PT, patient currently assist of two, family understand and reports there are multiple family members in the home. Family
agreeable to home services, will place referral to VN to patients home address ([address] [place] [id number]). Grandson reports no steps to enter, agreeable to discharge today. IMM verbally reviewed, provided with copy. Family requesting a
hospital bed, aware will not be delivered same day of discharge, family aware and report patient does have a bed at home but in need of hospital bed. Family requesting patients son, Haroldo, to be contact for VN services [phone]. Update to
Hospitalist. Patient scheduled for 3:00 p.m. transport home.
Original Note:
CM reviewed chart, per Celina, admissions at [facility], auth received #[id number], 08/04 next review date 08/11. Phone call to patients son to discuss auth approval and discharge to [facility], and to review IMM, left voicemail. Patient
will need ambulance transport, scheduled for 1:00 p.m. CM will continue to follow for all discharge planning needs.
Plan; [facility], 1:00 p.m. ambulance transport
[facility]
Report: [phone]
--- NOTE | 2024-08-04 11:26 | W.PN.HOSP.TC ---
Today's Communication/Plan
-
dc
Assessment / Plan
Assessment / Plan
84yo M with PMHx of COPD, DM, SDH, seizure d/o came from [facility] for evaluation of infection, managed for pneumonitis, possible bacterial source vs ILD, as per pulm tapered on steroids, remained without hypoxia on RA. GABI resolved, patient is
stable for d/c to rehab as recommended by PT/OT
A/P:
#Sepsis 2/2 suspected pneumonia v pneumonitis concerning for pneumonitis versus inflammatory pneumonitis versus ILD
CT chest with severe interstitial and airspace disease throughout both lungs, preferentially involves periphery of the right upper and middle lobes and nearly entire left upper lobe and superior segment of the left lower lobe
COVID-19 and Flu PCR negative
bcx NTD
Completed Zosyn as per agreement with pulm
steroids taper started per pulmonary, outpatient f/u in 6-8 weeks
#Stable small subacute subdural hemorrhage versus dural thickening
Neurology consulted: stable findings no intervention
#Acute metabolic encephalopathy
resolved
#CKD stage 3a
Cr 1.3-1.5
#DM type 2 with nephropathy
Insulin SS, accuchekcs and DM diet
#seizure disorder
continue Keppra
seizure precautions
#COPD stable
continue Incruse Ellipta
#Dysphagia
VSE no aspiration. Recommended continue current IDDS6 diet as per APPLICATION SUPPORT ANALYST
#mild anemia
outpatient f/u with PCP
#L axila sebaceous cyst
asymptomatic
#Small hiatal hernia
asymptomatic
DVT ppx hep
FUll code
I have spent at least 38min reviewing chart, test results, communication with consultants and providing direct patient care
Anticipated Discharge: Today
Subjective/Interval History
-
Date of Service: August 04, 2024
Objective Data
-
Vital Signs:
Vital Signs
Temp Pulse Resp BP Pulse Ox
97.7 F 83 16 131/65 95
08/04/24 07:00 08/04/24 08:15 08/04/24 08:15 08/04/24 07:00 08/04/24 08:15
I&O
08/03/24 08/04/24 08/05/24
06:59 06:59 06:59
Intake Total 870 / 870 120 / 120
Balance 870 / 870 120 / 120
Review of Systems
-
History Source: Patient
All other systems: Reviewed and negative
Physical Exam
-
General: No Apparent Distress
HEENT: Normocephalic
Neuro: Awake, Alert, Oriented and AO x 3
Psych: Calm
[2024-08-04 11:27] VITALS: BP 124/75
--- NOTE | 2024-08-04 11:32 | W.DCSUMMARY ---
Addendum entered and electronically signed by Jarad Castañeda MD 08/05/24 12:25:
#Stage 1 sacral pressure ulcer
wound care
Addendum entered and electronically signed by Jarad Castañeda MD 08/04/24 11:53:
Family declined rehab and will pickup patient home.
Original Note:
Discharge Summary
Discharge Data
Date of Admission: 07/27/24
Date of Discharge: 08/04/24
-
Pending Results: No
Hospital Course
84yo M with PMHx of COPD, DM, SDH, seizure d/o came from [facility] for evaluation of infection, managed for pneumonitis, possible bacterial source vs ILD, as per pulm tapered on steroids, remained without hypoxia on RA. GABI resolved, patient is
stable for d/c to rehab as recommended by PT/OT
I have spent at least 38min reviewing chart, test results, communication with consultants and providing direct patient care
Patient was managed for:
#Sepsis 2/2 suspected pneumonia v pneumonitis concerning for pneumonitis versus inflammatory pneumonitis versus ILD
#Stable small subacute subdural hemorrhage versus dural thickening
#Acute metabolic encephalopathy
#CKD stage 3a
#DM type 2 with nephropathy
#seizure disorder
#COPD stable
#Dysphagia
#mild anemia
#L axila sebaceous cyst
#Small hiatal hernia
Discharge Plan
-
Patient Disposition: Detention/SNF
Discharge Diagnosis/Procedures: Sepsis secondary to suspected pneumonia versus pneumonitis
Abnormal chest radiographic finding concerning for pneumonitis versus inflammatory pneumonitis versus ILD
Acute metabolic encephalopathy
Stable small subacute subdural thickening
Acute kidney injury likely on chronic kidney disease 3a vs. 3b
Condition: Fair
Diet: Other diet
Additional Diets: Recommend:
1. IDDSI Level 6 Soft/Bite Sized, Thin Liquids
2. Medications: in puree
3. Supervision; assist as needed
4. Strategies: upright to 90 degrees, small single sips/bites, slow rate, reflux precautions
5. No further dysphagia tx warranted at this time. Consider advancement of diet upon return to facility if/when dental appliances available.
Activity: With assistance and As tolerated
Driving Restrictions: Not until seen by your Dr
Others Tests: outpatient-CT chest in 6 to 8 weeks,
Referrals:
Luis Carlos Albarran MD [Family Provider] - in less than 1 week
Manas Uribe MD [Active] - in four to six weeks (call to make appt. )
Additional Discharge Medication Instructions: Lisinopril 5 mg was discontinued
Prescriptions:
New
prednisone 10 mg Tablet
See Rx Instructions .ROUTE .COMPLEX Qty: 30 0RF
Rx Instructions:
Take By Mouth:
40 mg daily x3 days, 30 mg daily x3 days,
20 mg daily x3 days, 10 mg daily x3 days.
Continued
insulin glargine 100 unit/mL Solution
15 unit SC HS
magnesium hydroxide [Milk of Magnesia] 400 mg/5 mL Suspension
30 ml PO HSPRN PRN (Reason: if no BM in 3 days)
bisacodyl 10 mg Suppository
10 mg MN DAILYPRN PRN (Reason: if no bm aftr mom)
levetiracetam [Keppra] 750 mg Tablet
750 mg PO Q12H
insulin lispro 100 unit/mL Cartridge
1 sliding scale dose SC BID
Rx Instructions:
150-200=2 units, 201-250=4 units, 251-300=6 units, 301-350=8 units,351-400=10 units
Incruse Ellipta 62.5 mcg/actuation Blister With Device
1 inh INHALATION R DAILY
acetaminophen [Tylenol] 325 mg Tablet
650 mg PO Q6HPRN PRN (Reason: mild pain)
mirtazapine [Remeron] 15 mg Tablet
7.5 mg PO DAILY
Discontinued
lisinopril 5 mg Tablet
5 mg PO DAILY
Discharge Orders:
Discharge Patient (As Directed); Ordered 08/01/24
Ordered By: Niall Escobar
Discharge Date and Time
Print Language: GIBRALTARIAN
[2024-08-04 11:41] LABS: Glucose - Point of Care 128 mg/dl (70-99)
== END 2024-08-04 15:28 | disposition home health service (06) | DRG 871 ==
LOC: 4 WEST ACU 19:42
PROVIDERS: Nurse Practitioner Family; Student in an Organized Health Care Education/Training Program; ADMITTING PHYSICIAN Internal Medicine; ATTENDING PHYSICIAN Internal Medicine; CONSULT PHYSICIAN Internal Medicine Critical Care Medicine; CONSULT PHYSICIAN Psychiatry & Neurology Clinical Neurophysiology; EMERGENCY PHYSICIAN Student in an Organized Health Care Education/Training Program; FAMILY PHYSICIAN Internal Medicine
DX: A41.9 Sepsis, unspecified organism (principal); G93.41 Metabolic encephalopathy; J18.9 Pneumonia, unspecified organism; I62.00 Nontraumatic subdural hemorrhage, unspecified; J44.0 Chronic obstructive pulmonary disease with (acute) lower respiratory infection; E11.22 Type 2 diabetes mellitus with diabetic chronic kidney disease; N18.31 Chronic kidney disease, stage 3a; E11.65 Type 2 diabetes mellitus with hyperglycemia; E11.21 Type 2 diabetes mellitus with diabetic nephropathy; G40.909 Epilepsy, unspecified, not intractable, without status epilepticus; R13.10 Dysphagia, unspecified; D63.1 Anemia in chronic kidney disease; L72.3 Sebaceous cyst; K44.9 Diaphragmatic hernia without obstruction or gangrene; Z11.52 Encounter for screening for COVID-19; Z79.4 Long term (current) use of insulin; I48.91 Unspecified atrial fibrillation; W19.XXXA Unspecified fall, initial encounter; Z95.2 Presence of prosthetic heart valve; L89.151 Pressure ulcer of sacral region, stage 1
CPT/HCPCS: 70450; 71046; 71250; 74230; 80053; 80202; 81003; 81015; 82785; 82962; 83036; 83605; 84132; 84145; 85025; 85027; 85652; 86140; 87040; 87070; 87086; 87502; 87641; 87811; 92610; 92611; 93005; 93306; 94640; 96360; 97163; 97167; 97530; 97535; 99285